=== PATIENT | female | born 1925 | race Caucasian/White ===

== ENCOUNTER 2016-12-28 15:25 | Inpatient (IN) ==
[2016-12-28] MEDS ORDERED: 0.9 % Sodium Chloride 1,000 ML IVC ONE (15:36)
[2016-12-28] MEDS ORDERED: Ondansetron 4 MG/2 ML VIAL IVP ONE (15:36)
[2016-12-28 16:26] LABS: Basophils % 0.2 %; Eosinophils % 0.2 %; Hematocrit 45.6 % (35.3-44.9); Hemoglobin 14.5 g/dL (11.5-15.4); Immature Granulocytes % 0.8 % (0-4); Lymphocytes # 0.5 K/mcL (0.6-4.6); Lymphocytes % 2.9 %; Mean Corpuscular HGB Conc 31.8 g/dL (31.6-35.5); Mean Corpuscular Hemoglobin 31.3 pg (28.0-33.3); Mean Corpuscular Volume 98.5 fL (83.0-100.0); Mean Platelet Volume 12.5 fL (9.4-12.4); Monocytes # 0.7 K/mcL (0.0-1.3); Monocytes % 4.1 %; Neutrophils # 14.7 K/mcL (1.6-8.9); Platelet Count 239 K/mcL (140-400); Red Blood Count 4.63 M/mcL (3.82-4.97); Red Cell Distribution Width 12.6 % (11.5-14.5); Segmented Neutrophils % 91.8 %
[2016-12-28 16:34] LABS: Bilirubin,Urine Negative (Negative); Blood,Urine Negative (Negative); Clarity,Urine Clear (Clear); Color,Urine Yellow (Yellow); Glucose,Urine (UA) Normal (Normal); Ketones,Urine Negative (Negative); Leukocyte Esterase,Urine Trace (Negative); Nitrite,Urine Negative (Negative); Protein,Urine Negative (Neg-Trace); Specific Gravity,Urine 1.015 (1.010-1.025); Urobilinogen,Urine Normal (Normal)
[2016-12-28 16:38] LABS: Bacteria,Urine None Seen per hpf (None-Few); Hyaline Casts,Urine None Seen per lpf (None-Few); RBC,Urine 0-3 per hpf (0-3); Squamous Epithelial Cell,Urine Many per lpf (None-Few); WBC,Urine 0-3 per hpf (0-3)
[2016-12-28 16:40] LABS: Albumin 3.8 g/dL (3.5-5.0); Albumin/Globulin Ratio 0.9 (1.1-2.2); Bilirubin,Total 0.5 mg/dL (0.2-1.2); Calcium 9.7 mg/dL (8.6-10.8); Globulin 4.4 g/dL (2.4-3.5); Potassium 4.4 mEq/L (3.5-4.5); Total Protein 8.2 g/dL (6.0-8.3)
--- NOTE | 2016-12-28 16:46 | Emergency Department Note ---
Disposition Clinical Impression: Hypoxia, Aspiration into airway, Rotavirus enteritis, [id number] kidney injury Disposition: Admitted As Inpatient Condition: Fair Time of Disposition: 18:56 General Adult HPI - General Chief complaint: ED Nausea/Vomiting/Diarrhea Stated complaint: vomiting diarrhea Time Seen by Provider: 12/28/16 15:28 Source: EMS Nursing Notes Reviewed: Yes Vital Signs Reviewed: Yes - History of Present Illness HPI Narrative: Patient is a 89-year-old female was brought in by EMS from [facility] secondary to suspected aspiration event morning. Patient had a O2 sat of 72 EMS arrived, and route patient was suctioned, which allowed elevation of her SPO2 secondary to getting some chunks in yellow mucus out. On arrival patient had incontinence of bowel with copious amounts of watery greenish stool in the rig, and then again once patient got into the room. Pain Scale: 0 - Related Data Home Medications Medication Instructions Recorded Confirmed Docusate Sodium [Move It Along] 100 mg PO DAILY 09/05/16 12/28/16 Ibuprofen [Motrin] 200 mg PO Q12H PRN 09/05/16 12/28/16 Levothyroxine [Synthroid] 100 mcg PO DAILY 09/05/16 12/28/16 Losartan [Cozaar] 25 mg PO DAILY 09/05/16 12/28/16 Memantine HCl 10 mg PO BID 09/05/16 12/28/16 Metoprolol [Lopressor] 50 mg PO BID 09/05/16 12/28/16 Omeprazole [PriLOSEC] 20 mg PO DAILY 09/05/16 12/28/16 Sennosides [Senna] 8.6 mg PO DAILY 09/05/16 12/28/16 Acetaminophen [Tylenol] 500 mg PO Q6HR PRN 09/06/16 12/28/16 Calcium Carbonate [Tums] 1,000 mg PO Q4HR PRN 12/28/16 12/28/16 Citalopram [CeleXA] 20 mg PO DAILY 12/28/16 12/28/16 Divalproex Sodium [Depakote 125 mg PO BID 12/28/16 12/28/16 Sprinkle] Gabapentin [Neurontin] 100 mg PO HS 12/28/16 12/28/16 Lactose-Reduced Food [Ensure Plus] 1 bottle PO DAILY 12/28/16 12/28/16 Magic Cup 1 each PO DAILY 12/28/16 12/28/16 Nutritional Supplement [Ensure] 113 gm PO QPM 12/28/16 12/28/16 Allergies Allergy/AdvReac Type Severity Reaction Status Date / Time codeine Allergy See Verified 12/28/16 16:06 Comments Donepezil [From Aricept] Allergy See Verified 12/28/16 16:06 Comments Limitations: ROS unobtainable due to patients medical condition Past Medical History - Past Medical History Source: old records reviewed Medical history: Reports: cancer, dementia, hypertension, thyroid disease Psychiatric history: Reports: no psych history - Social History Smoking Status: Unknown if ever smoked Smokeless Tobacco Status: No Alcohol use: Reports: none Drug use: Reports: none Physical Exam - General Limitations: other (History of Alzheimer's dementia from report this is patient' s normal baseline. Patient makes attempts at all some directions. Her mouth and she responded to some questioning stating that she was cold) General appearance: lethargic - Head Head exam: atraumatic, normocephalic, normal inspection - Eye Eye exam: Present: normal appearance, PERRL - ENT ENT exam: normal exam, mucous membranes dry - Neck Neck exam: Present: normal inspection. Absent: tenderness - Chest Chest inspection: Present: normal inspection, symmetric chest wall rise. Absent : tenderness - Respiratory Respiratory exam: Present: wheezes, stridor - Cardiovascular Cardiovascular exam: Present: regular rate, normal rhythm - Abdominal Exam Abdominal exam: Present: soft, tenderness Abdominal tenderness: Present: diffuse - Rectal Exam Rectal exam: Present: other (Deferred secondary to explosive diarrhea) - Female External Exam: Present: normal external exam - Extremities Exam Extremities exam: Present: normal inspection, normal capillary refill. Absent: tenderness, pedal edema - Expanded Lower Extremity Exam Neurovascular/Tendon exam: Present: normal capillary refill - Neurological Exam Neurological exam: Present: other (Alert to self only) - Psychiatric Psychiatric exam: Present: normal affect - Skin Skin exam: Present: other (cool and dry) Course - Reevaluation(s) Reevaluation #1: Patient's concerning for sepsis secondary to GI infection: C. difficile, versus viral Time: 15:30 Reevaluation #2: Patient's labs show an elevation of white count of 16.0, patient has chronically elevated BUN and creatinine but does worsen today. There are shows positivity for rotavirus. Imaging shows: CT: IMPRESSION: 1. No acute intra-abdominal process identified. 2. Rectal tube in place with nonspecific fluid noted throughout the colon and to a lesser extent small bowel. No evidence for bowel obstruction. 3. Diverticulosis without evidence for diverticulitis. 4. Severe atherosclerotic disease. Chest X-Ray 12/28/16 15:36 IMPRESSION: Left basilar atelectasis or scarring. No acute cardiopulmonary process is seen. Plan is to admit patient for hypoxic event secondary to aspiration and an 89- year-old female with severe gastroenteritis secondary to rotavirus infection Time: 18:14 Reevaluation #3: Patient looks improved from when she first got here. Patient still has unintelligible speech. IV antibiotics have been initiated for possible aspiration pneumonia. Family accepts treatment and plan for admission. Spoke to hospitalist who has accepted for admission - Consultations Consultation #1: Accepted for admission by Dora FLORES Time: 18:55 Vital Signs Temperature 97.7 F 12/28/16 16:01 Pulse Rate 77 12/28/16 16:01 Respiratory Rate 18 12/28/16 16:01 Blood Pressure 144/83 12/28/16 16:01 O2 Sat by Pulse Oximetry 88 12/28/16 16:01 Temperature 98.4 F 12/28/16 21:26 Pulse Rate 87 12/28/16 21:26 Respiratory Rate 17 12/28/16 21:26 Blood Pressure 111/61 12/28/16 21:26 O2 Sat by Pulse Oximetry 94 12/28/16 21:26 Oxygen Delivery Oxygen Delivery Room Air Medical Decision Making - Medical Records Medical records reviewed: Yes I reviewed the patient's medical records. - Lab Data Lab results reviewed: Yes I reviewed the patient's lab results. Lab results narrative: Short CBC 12/28/16 Range/Units 16:18 WBC 16.0 H (4.3-11.1) K/mcL Hgb 14.5 (11.5-15.4) g/dL Hct 45.6 H (35.3-44.9) % Plt Count 239 (140-400) K/mcL Neutrophils # 14.7 H (1.6-8.9) K/mcL BMP 12/28/16 Range/Units 16:18 Sodium 140 (136-145) mEq/L Potassium 4.4 (3.5-4.5) mEq/L Chloride 108 (98-109) mEq/L Carbon Dioxide 18 L (19-29) mEq/L BUN 33 H (7-20) mg/dL Creatinine 1.34 H (0.57-1.11) mg/dL Glucose 167 H (70-99) mg/dL Calcium 9.7 (8.6-10.8) mg/dL Liver Function 12/28/16 Range/Units 16:18 Total Bilirubin 0.5 (0.2-1.2) mg/dL AST 27 (5-34) Units/L ALT 34 (0-55) Units/L Alkaline Phosphatase 97 (38-126) Units/L Albumin 3.8 (3.5-5.0) g/dL Urine 12/28/16 Range/Units 15:56 Urine Color Yellow (Yellow) Urine Clarity Clear (Clear) Urine pH 6.0 (5.0-8.0) pH Units Ur Specific Bath 1.015 (1.010-1.025) Urine Protein Negative (Neg-Trace) mg/dL Urine Glucose (UA) Normal (Normal) mg/dL Result diagrams: 12/28/16 16:18 12/28/16 16:18 Lab Results 12/28/16 12/28/16 12/28/16 Range/Units 15:56 15:56 16:18 WBC 16.0 H (4.3-11.1) K/mcL RBC 4.63 (3.82-4.97) M/mcL Hgb 14.5 (11.5-15.4) g/dL Hct 45.6 H (35.3-44.9) % MCV 98.5 (83.0-100.0) fL MCH 31.3 (28.0-33.3) pg MCHC 31.8 (31.6-35.5) g/dL RDW 12.6 (11.5-14.5) % Plt Count 239 (140-400) K/mcL MPV 12.5 H (9.4-12.4) fL Immature Gran % 0.8 (0-4) % Seg Neutrophils % 91.8 % Lymphocytes % 2.9 % Monocytes % 4.1 % Eosinophils % 0.2 % Basophils % 0.2 % Neutrophils # 14.7 H (1.6-8.9) K/mcL Lymphocytes # 0.5 L (0.6-4.6) K/mcL Monocytes # 0.7 (0.0-1.3) K/mcL Eosinophils # 0.0 (0.0-0.6) K/mcL Basophils # 0.0 (0.0-0.2) K/mcL Sodium (136-145) mEq/L Potassium (3.5-4.5) mEq/L Chloride (98-109) mEq/L Carbon Dioxide (19-29) mEq/L BUN (7-20) mg/dL Creatinine (0.57-1.11) mg/dL Est GFR ( Amer) (> 60) Est GFR (Non-Af Amer) (> 60) BUN/Creatinine Ratio (6-26) Glucose (70-99) mg/dL Calculated Osmolality (280-300) Lactic Acid (0.5-2.2) mmol/L Calcium (8.6-10.8) mg/dL Total Bilirubin (0.2-1.2) mg/dL AST (5-34) Units/L ALT (0-55) Units/L Alkaline Phosphatase (38-126) Units/L Serum Total Protein (6.0-8.3) g/dL Albumin (3.5-5.0) g/dL Globulin (2.4-3.5) g/dL Albumin/Globulin Ratio (1.1-2.2) Lipase (8-78) Units/L TSH (0.350-4.840) mcIU/mL Urine Color Yellow (Yellow) Urine Clarity Clear (Clear) Urine pH 6.0 (5.0-8.0) pH Units Ur Specific Bath 1.015 (1.010-1.025) Urine Protein Negative (Neg-Trace) mg/dL Urine Glucose (UA) Normal (Normal) mg/dL Urine Ketones Negative (Negative) mg/dL Urine Blood Negative (Negative) Urine Nitrite Negative (Negative) Urine Bilirubin Negative (Negative) Urine Urobilinogen Normal (Normal) mg/dL Ur Leukocyte Esterase Trace H (Negative) Urine Microscopic RBC 0-3 (0-3) per hpf Urine Microscopic WBC 0-3 (0-3) per hpf Ur Squamous Epith Cells Many H (None-Few) per lpf Urine Bacteria None Seen (None-Few) per hpf Hyaline Casts None Seen (None-Few) per lpf Ur Culture Indicated? YES A (NO) Stl C. cayetanensis PCR Not detected (Not detect) Stool Rotavirus A PCR DETECTED A (Not detect) Stl Adenov F 40/41 PCR Not detected (Not detect) Stool Astrovirus (PCR) Not detected (Not detect) Stool Campylobacter PCR Not detected (Not detect) Stl C. diff Tox A/B PCR Not detected (Not detect) Stool Cryptosporidium PCR Not detected (Not detect) Stl Sh Tox Pr E STEC PCR Not detected (Not detect) Stool E coli O157 PCR Not detected (Not detect) Stl Enterotoxigenic E PCR Not detected (Not detect) Stool EPEC (PCR) Not detected (Not detect) Stool EAEC (PCR) Not detected (Not detect) Stl E. histolytica PCR Not detected (Not detect) Stool Giardia Lamblia PCR Not detected (Not detect) Stool Salmonella PCR Not detected (Not detect) Stool Sapovirus (PCR) Not detected (Not detect) Stl P. shigelloides PCR Not detected (Not detect) Stl Shigella/EIEC PCR Not detected (Not detect) St Y.enterocolitica PCR Not detected (Not detect) Stool Vibrio (PCR) Not detected (Not detect) Stl Vibrio cholerae PCR Not detected (Not detect) Stl Norovirus GI/GII PCR Not detected (Not detect) Stl GI Panel (PCR) Com See below Specimen Rejected 12/28/16 12/28/16 12/28/16 Range/Units 16:18 18:58 19:37 WBC (4.3-11.1) K/mcL RBC (3.82-4.97) M/mcL Hgb (11.5-15.4) g/dL Hct (35.3-44.9) % MCV (83.0-100.0) fL MCH (28.0-33.3) pg MCHC (31.6-35.5) g/dL RDW (11.5-14.5) % Plt Count (140-400) K/mcL MPV (9.4-12.4) fL Immature Gran % (0-4) % Seg Neutrophils % % Lymphocytes % % Monocytes % % Eosinophils % % Basophils % % Neutrophils # (1.6-8.9) K/mcL Lymphocytes # (0.6-4.6) K/mcL Monocytes # (0.0-1.3) K/mcL Eosinophils # (0.0-0.6) K/mcL Basophils # (0.0-0.2) K/mcL Sodium 140 (136-145) mEq/L Potassium 4.4 (3.5-4.5) mEq/L Chloride 108 (98-109) mEq/L Carbon Dioxide 18 L (19-29) mEq/L BUN 33 H (7-20) mg/dL Creatinine 1.34 H (0.57-1.11) mg/dL Est GFR ( Amer) 45 L (> 60) Est GFR (Non-Af Amer) 37 L (> 60) BUN/Creatinine Ratio 25 (6-26) Glucose 167 H (70-99) mg/dL Calculated Osmolality 301 H (280-300) Lactic Acid 1.5 (0.5-2.2) mmol/L Calcium 9.7 (8.6-10.8) mg/dL Total Bilirubin 0.5 (0.2-1.2) mg/dL AST 27 (5-34) Units/L ALT 34 (0-55) Units/L Alkaline Phosphatase 97 (38-126) Units/L Serum Total Protein 8.2 (6.0-8.3) g/dL Albumin 3.8 (3.5-5.0) g/dL Globulin 4.4 H (2.4-3.5) g/dL Albumin/Globulin Ratio 0.9 L (1.1-2.2) Lipase 52 (8-78) Units/L TSH 4.341 (0.350-4.840) mcIU/mL Urine Color (Yellow) Urine Clarity (Clear) Urine pH (5.0-8.0) pH Units Ur Specific Bath (1.010-1.025) Urine Protein (Neg-Trace) mg/dL Urine Glucose (UA) (Normal) mg/dL Urine Ketones (Negative) mg/dL Urine Blood (Negative) Urine Nitrite (Negative) Urine Bilirubin (Negative) Urine Urobilinogen (Normal) mg/dL Ur Leukocyte Esterase (Negative) Urine Microscopic RBC (0-3) per hpf Urine Microscopic WBC (0-3) per hpf Ur Squamous Epith Cells (None-Few) per lpf Urine Bacteria (None-Few) per hpf Hyaline Casts (None-Few) per lpf Ur Culture Indicated? (NO) Stl C. cayetanensis PCR (Not detect) Stool Rotavirus A PCR (Not detect) Stl Adenov F 40/41 PCR (Not detect) Stool Astrovirus (PCR) (Not detect) Stool Campylobacter PCR (Not detect) Stl C. diff Tox A/B PCR (Not detect) Stool Cryptosporidium PCR (Not detect) Stl Sh Tox Pr E STEC PCR (Not detect) Stool E coli O157 PCR (Not detect) Stl Enterotoxigenic E PCR (Not detect) Stool EPEC (PCR) (Not detect) Stool EAEC (PCR) (Not detect) Stl E. histolytica PCR (Not detect) Stool Giardia Lamblia PCR (Not detect) Stool Salmonella PCR (Not detect) Stool Sapovirus (PCR) (Not detect) Stl P. shigelloides PCR (Not detect) Stl Shigella/EIEC PCR (Not detect) St Y.enterocolitica PCR (Not detect) Stool Vibrio (PCR) (Not detect) Stl Vibrio cholerae PCR (Not detect) Stl Norovirus GI/GII PCR (Not detect) Stl GI Panel (PCR) Com Specimen Rejected Hemolyzed - Radiology Data Radiology results reviewed: Yes I reviewed the patient's radiology results. Abdomen/Pelvis CT 12/28/16 15:36 IMPRESSION: 1. No acute intra-abdominal process identified. 2. Rectal tube in place with nonspecific fluid noted throughout the colon and to a lesser extent small bowel. No evidence for bowel obstruction. 3. Diverticulosis without evidence for diverticulitis. 4. Severe atherosclerotic disease. D/ / Theodore Bishop MD / Theodore Bishop MD Interpreting Provider: Theodore Bishop MD Chest X-Ray 12/28/16 15:36 IMPRESSION: Left basilar atelectasis or scarring. No acute cardiopulmonary process is seen. D/ / Román Cruz MD / Román Cruz MD Interpreting Provider: Román Cruz MD
[2016-12-28 17:31] LABS: Adenovirus F 40/41 PCR Not detected (Not detect); Astrovirus PCR Not detected (Not detect); C.difficile Toxin A/B by PCR Not detected (Not detect); Campylobacter by PCR Not detected (Not detect); Cryptosporidium by PCR Not detected (Not detect); Cyclospora cayetanensis PCR Not detected (Not detect); E. coli O157 by PCR Not detected (Not detect); Entamoeba histolytica PCR Not detected (Not detect); Enteroaggregative E.coli(EAEC) Not detected (Not detect); Enteropathogenic E.coli(EPEC) Not detected (Not detect); Enterotoxigenic E.coli (ETEC) Not detected (Not detect); Giardia lamblia PCR Not detected (Not detect); Norovirus GI/GII PCR Not detected (Not detect); Plesiomonas shigelloides PCR Not detected (Not detect); Rotavirus A PCR ***DETECTED*** (Not detect); Salmonella PCR Not detected (Not detect); Sapovirus PCR Not detected (Not detect); Shig/EnteroinvasiveE coli EIEC Not detected (Not detect); Shigalike tox-prod E coli STEC Not detected (Not detect); Vibrio PCR Not detected (Not detect); Vibrio cholerae PCR Not detected (Not detect); Yersinia enterocolitica PCR Not detected (Not detect)
[2016-12-28] MEDS ORDERED: Vancomycin 1,500 MG in D5% in Water 250 ML IVPB STA (18:05)
[2016-12-28] MEDS ORDERED: Piperacillin/Tazobactam 3.375 GM in D5% in Water (Mini-Bag+) 100 ML IVPB ONE (18:05)
--- NOTE | 2016-12-28 18:42 | Emergency Department Note ---
START Narrative - START START: I, Helder Case, examined this patient and my medical decision-making was reviewed with the MEDICAL DEVICE ENGINEER/PA/Advanced Practice Nurse/Resident Physician. I agree with the documented findings, disposition and treatment plan as described except to the extent set forth below. 89-year-old female brought in to the emergency department by EMS for hypoxia and vomiting with concerns of aspiration. Family states the patient has been increasingly weak and fatigued over the past 24 hours. She had multiple episodes of vomiting at the nursing facility and was satting 72% upon EMS arrival. EMS state they placed the patient on nonrebreather which improved her O2 saturation. Upon arrival to the emergency department the patient had multiple episodes of explosive diarrhea. This was described as a greenish brown liquid without hematochezia or melena. Patient is unable to give a history regarding her case and presentation. A rectal tube was placed by the assisted living nursing director after multiple episodes of liquid stool. Stool panel resulted with rotavirus and was negative for C. difficile. Patient has a small area of possible atelectasis versus aspiration on the chest x-ray. Patient started on antibiotics and will be admitted to the hospital for possible aspiration in for further evaluation and observation.
--- NOTE | 2016-12-28 21:29 | Internal Med History&Physical ---
<Shalom Gross - Last Filed: 12/29/16 00:05> Date of Encounter: 12/29/16 Time of Encounter: 21:00 Assessment and Plan (1) Aspiration into airway Current visit: Yes Status: Suspected Patient reportedly had oxygen saturation 72% when initially evaluated by EMS. Patient's oxygen saturation improved with nonrebreather and she has since stabilized on nasal cannula (4 L). Patient is showing no signs of respiratory distress, nor does she appear to have much difficulty breathing. On auscultation patient has rails heard in the right lower lobe. Concern for possible aspiration event given recent nausea and vomiting. We will continue antibiotics with ampicillin/sulbactam (Unasyn) - dose per patient current creatinine clearance of 12 If patient kidney function improves can change dosing schedule to every 12 hours or more We will provide maintenance IV fluids until patient taking better by mouth (100 ml/hr NS) We will obtain sputum cultures We will obtain blood cultures Acetaminophen as needed for patient's fever We will continue supplemental oxygen as needed, wean as tolerated Will obtain D-Dimer CTA if D-Dimer positive and improvement in renal function observed Qualifiers: Encounter type: initial encounter Qualified Code(s): T17.908A - Unspecified foreign body in respiratory tract, part unspecified causing other injury, initial encounter (2) Rotavirus enteritis Current visit: Yes Status: Acute Patient reportedly have nausea, vomiting, diarrhea prior to contacting EMS and presentation to [facility]. Patient found to have rotavirus in her stool and presentation. Patient's stool was nonbloody, non-melanotic, but was reportedly explosive in character. Patient received rectal tube in the emergency department. We will continue supportive management Continue maintenance fluids until patient taking better by mouth Bedside swallow evaluation Continue home dietary supplements Zofran as needed for patient nausea Patient takes docusate and senna at home for constipation, will place on patient MAR as when necessary (3) Xkccx-ab-fbannrn kidney injury Current visit: Yes Status: Acute Patient currently has acute kidney injury on top of her chronic kidney disease. Current acute kidney injury likely due to dehydration decreased by mouth with recent gastroenteritis from rotavirus. We will avoid nephrotoxic agents We will continue to evaluate renal function with daily chemistry We will give maintenance dose normal saline at 100 ml/hour We will obtain swallow eval while patient to take by mouth if she is able (4) HTN (hypertension) Current visit: No Status: Chronic Patient takes several blood pressure medications at home, including: Metoprolol and losartan We will hold patient losartan due to concerns of acute kidney injury We will continue patient home metoprolol Qualifiers: Hypertension type: essential hypertension Qualified Code(s): I10 - Essential (primary) hypertension (5) DVT prophylaxis Current visit: Yes Status: Acute 5000 units heparin subcutaneous 3 times a day (6) Hypothyroid Current visit: Yes Status: Acute Continue home Synthroid Will check patient TSH Qualifiers: Hypothyroidism type: unspecified Qualified Code(s): E03.9 - Hypothyroidism , unspecified (7) Dementia Current visit: Yes Status: Acute Unsure if patient currently at baseline mental status, but history of Alzheimer' s dementia on several home medications. Continue home medications Qualifiers: Dementia type: Alzheimer's disease Alzheimer's disease onset: unspecified onset Dementia behavioral disturbance: without behavioral disturbance Qualified Code(s): G30.9 - Alzheimer's disease, unspecified; F02.80 - Dementia in other diseases classified elsewhere without behavioral disturbance Internal Medicine - H&P: HPI Chief complaint: Increased encephalopathy Admitted From: Long-term Nursing Facility Plans for Post Hospital Care: Transfer Alf Care History of present illness: Ms. Bills is a 89 year old female with prior medical history of breast cancer, Alzheimer's dementia, hypertension, and hypothyroidism who was brought to [facility] from the nursing facility at which she resides after having been found by her family to be increasingly encephalopathic. The patient's family was not present and the patient was unable to contribute to the current history, so history was obtained via chart review. According to the patient's family she had been having increased weakness and fatigue for the last 24 hours. She had been having nausea, vomiting, and diarrhea at the long-term and was found to have an oxygen saturation of 72% when EMS arrived. Her oxygen saturation did improve with a non-rebreather, and has since stabilized with nasal cannula, but she continued to have copious amounts of diarrhea in both the ambulance and in the emergency department. The patient's stool is described as greenish, non-melanotic, non-bloody. She was found to have rotavirus (and no C. Diff) on examination of her stool. CBC showed leukocytosis, and CT showed possible scarring vs atelectasis of her L lower lobe. Given her baseline altered mental status, there is concern that she could possibly have aspirated during one of her vomiting episodes. Past Med Surg Social Fam HX - Past Medical History Medical history: cancer (Breast), dementia, hypertension, thyroid disease ( hypothyroid) Psychiatric history: no psych history - Past Surgical History Surgical History: breast surgery (b/l mastectomy) - Social History Smoking Status: Unknown if ever smoked Smokeless Tobacco Status: No Alcohol use: none Drug use: none Internal Medicine - H&P: Meds Docusate Sodium [Move It Along] 100 mg PO DAILY 09/05/16 [History] Ibuprofen [Motrin] 200 mg PO Q12H PRN 09/05/16 [History] Levothyroxine [Synthroid] 100 mcg PO DAILY 09/05/16 [History] Losartan [Cozaar] 25 mg PO DAILY 09/05/16 [History] Memantine HCl 10 mg PO BID 09/05/16 [History] Metoprolol [Lopressor] 50 mg PO BID 09/05/16 [History] Omeprazole [PriLOSEC] 20 mg PO DAILY 09/05/16 [History] Sennosides [Senna] 8.6 mg PO DAILY 09/05/16 [History] Acetaminophen [Tylenol] 500 mg PO Q6HR PRN 09/06/16 [History] Calcium Carbonate [Tums] 1,000 mg PO Q4HR PRN 12/28/16 [History] Citalopram [CeleXA] 20 mg PO DAILY 12/28/16 [History] Divalproex Sodium [Depakote Sprinkle] 125 mg PO BID 12/28/16 [History] Gabapentin [Neurontin] 100 mg PO HS 12/28/16 [History] Lactose-Reduced Food [Ensure Plus] 1 bottle PO DAILY 12/28/16 [History] Magic Cup 1 each PO DAILY 12/28/16 [History] Nutritional Supplement [Ensure] 113 gm PO QPM 12/28/16 [History] Allergies codeine Allergy (Verified 12/28/16 16:06) See Comments UNKNOWN REACTION- LISTED ON PATIENT'S [facility] LAST APPT Donepezil [From Aricept] Allergy (Verified 12/28/16 16:06) See Comments UNKNOWN REACTION- LISTED ON PATIENT'S [facility] LAST APPT ROS unobtainable: due to mental status - Constitutional Vitals: Temp Pulse Resp BP Pulse Ox 97.7 F 91 18 140/61 92 12/28/16 16:01 12/28/16 19:02 12/28/16 20:21 12/28/16 20:21 12/28/16 19:02 Exam: General: Cooperative, pleasant, no acute distress, alert and oriented 1 (to self, but not time or place), does not answer questions appropriately Head: Normocephalic, atraumatic Eye: Conjunctiva pink, sclera anicteric, EOMI, PERRL Neck: Supple, trachea midline, mucous membranes slightly dry Respiratory: No accessory muscle usage, rales auscultated in right lower lobe of lung Cardiovascular: Regular rate and rhythm, S1 and S2 present, no murmurs/rubs/ gallops/clicks appreciated GI/abdominal: Nondistended, nontender, soft, normal bowel sounds, no peritoneal signs Extremities: No calf tenderness, noncyanotic, no pedal edema appreciated, warm, lower extremity pulses palpable and symmetrical Neurological: Alert and oriented 1 (to self, but not time or place), no facial droop, no focal deficits Skin: Dry, intact, normal color, increased skin turgor Internal Med - H&P Results - Labs CBC & Chem 7: 12/28/16 16:18 12/28/16 16:18 - EKG Data -: EKG Interpreted by Myself EKG shows normal: sinus rhythm Rate: normal - EKG Data Prior EKG available for review: yes When compared to previous EKG: there is no significant change EKG comments: 12/28/16 22:06 Stable appearing LBBB (when compared to prior ecg) - Impressions Impressions Abdomen/Pelvis CT 12/28/16 15:36 IMPRESSION: 1. No acute intra-abdominal process identified. 2. Rectal tube in place with nonspecific fluid noted throughout the colon and to a lesser extent small bowel. No evidence for bowel obstruction. 3. Diverticulosis without evidence for diverticulitis. 4. Severe atherosclerotic disease. D/ / Theodore Bishop MD / Theodore Bishop MD Interpreting Provider: Theodore Bishop MD Chest X-Ray 12/28/16 15:36 IMPRESSION: Left basilar atelectasis or scarring. No acute cardiopulmonary process is seen. D/ / Román Cruz MD / Román Cruz MD Interpreting Provider: Román Cruz MD <Tashi Chandra R - Last Filed: 12/29/16 12:14> Date of Encounter: 12/28/16 Assessment and Plan (1) Acute respiratory failure Current visit: Yes Status: Acute Possibly due to aspiration versus pulmonary embolism. Check d-dimers; possible CTA chest , if the d-dimers elevated and renal function improves. Qualifiers: Respiratory failure complication: hypoxia Qualified Code(s): J96.01 - Acute respiratory failure with hypoxia Internal Medicine - H&P: HPI History of present illness: Ms. Bills is a 89 year old female All Systems PM: A 10-system review of systems was performed and is negative for pertinent findings except as documented above in the HPI. - Constitutional Vitals: Temp Pulse Resp BP Pulse Ox 98.4 F 87 17 111/61 94 12/28/16 21:26 12/28/16 21:26 12/28/16 21:26 12/28/16 21:26 12/28/16 21:26 Internal Med - H&P Results - Labs CBC & Chem 7: 12/29/16 04:06 12/29/16 04:06 Labs: Short CBC 12/29/16 Range/Units 04:06 WBC 14.0 H (4.3-11.1) K/mcL Hgb 13.0 D (11.5-15.4) g/dL Hct 41.7 (35.3-44.9) % Plt Count 212 (140-400) K/mcL Neutrophils # 12.0 H (1.6-8.9) K/mcL BMP 12/29/16 12/29/16 00:55 04:06 Sodium 141 142 Potassium 3.9 3.6 Chloride 110 H 111 H Carbon Dioxide 17 L 18 L BUN 35 H 37 H Creatinine 1.41 H 1.45 H Glucose 161 H 131 H Calcium 8.8 8.7 - Attending Attestation I performed a history and physical examination of the patient and discussed management with the resident. I reviewed the residents notes and agree with the documented findings and plan of care. 89 Y/F, with h/o dementia with gastroenteritis. Hypoxic when the EMS evaluated the pt. Explosive diarrhea in the ER. Positive for rotavirus. O/E: Confused. B/ L basal crackles present. Abdomen non tender. CXR: Left basilar atelectasis. CT abdomen and pelvis reported no acute intra-abdominal process. A/P: Empirically treat for aspiration pneumonia, with unasyn. Hypoxic respiratory failure: Will check d-dimers; possible CTA, if d-dimer is positive (and renal function improves). Enteritis: Supportive care. IV fluid; probiotics.
[2016-12-28] MEDS ORDERED: Ondansetron 4 MG/2 ML VIAL IVP PRN (21:30)
[2016-12-28] MEDS ORDERED: Naloxone 0.4 MG/ML INJ IVP PRN (21:30)
[2016-12-28] MEDS ORDERED: Acetaminophen 325 MG TABLET PO PRN (21:30)
[2016-12-28] MEDS ORDERED: Sennosides 8.6 MG TABLET PO PRN (22:11)
[2016-12-28] MEDS ORDERED: Melatonin 3 MG TABLET PO PRN (22:12)
[2016-12-28] MEDS: *HR* Heparin 5,000 UNIT/ML VIAL SQ SCH (23:16)
[2016-12-28] MEDS: 0.9 % Sodium Chloride 1,000 ML IVC SCH (23:18)
[2016-12-28 23:23] LABS: Thyroid Stimulating Hormone 4.341 mcIU/mL (0.350-4.840)
[2016-12-29 01:45] LABS: Potassium 3.9 mEq/L (3.5-4.5)
[2016-12-29 01:46] LABS: Calcium 8.8 mg/dL (8.6-10.8); Magnesium 2.3 mg/dL (1.6-2.6)
[2016-12-29] MEDS: *HR* Heparin 5,000 UNIT/ML VIAL SQ SCH ×2 (05:41→16:57)
[2016-12-29 05:58] LABS: Basophils % 0.2 %; Hematocrit 41.7 % (35.3-44.9); Immature Granulocytes % 0.6 % (0-4); Lymphocytes # 0.7 K/mcL (0.6-4.6); Lymphocytes % 5.1 %; Mean Corpuscular HGB Conc 31.2 g/dL (31.6-35.5); Mean Corpuscular Hemoglobin 31.6 pg (28.0-33.3); Mean Corpuscular Volume 101.5 fL (83.0-100.0); Mean Platelet Volume 13.7 fL (9.4-12.4); Monocytes # 1.3 K/mcL (0.0-1.3); Monocytes % 8.9 %; Platelet Count 212 K/mcL (140-400); Red Blood Count 4.11 M/mcL (3.82-4.97); Red Cell Distribution Width 12.9 % (11.5-14.5); Segmented Neutrophils % 85.2 %
[2016-12-29 06:04] LABS: Calcium 8.7 mg/dL (8.6-10.8); Potassium 3.6 mEq/L (3.5-4.5)
--- NOTE | 2016-12-29 08:46 | Internal Med Progress Note ---
Date of Encounter: 12/29/16 Time of Encounter: 08:43 - Assessment and plan (1) Acute respiratory failure Current Visit: Yes Status: Acute Assessment and plan: Likely due to aspiration pneumonia from persistent vomiting and drowsiness. Continue IV Unasyn, follow up blood cultures. Supportive care and supplemental oxygen, wean down FiO2 as tolerated. Qualifiers: Respiratory failure complication: hypoxia Qualified Code(s): J96.01 - Acute respiratory failure with hypoxia (2) Rotavirus enteritis Current Visit: Yes Status: Acute Assessment and plan: Stool vital serology positive for rotavirus and patient noted to have explosive diarrhea, currently on fecal management system, along with projectile vomiting. Continue supportive care with when necessary Phenergan, Zofran and IV hydration. Pureed diet as tolerated. Monitor and supplement electrolytes as needed. (3) Ccqgs-uk-jignpyp kidney injury Current Visit: Yes Status: Acute Assessment and plan: Likely prerenal etiology due to GI losses and dehydration. Continue IV hydration and monitor serum creatinine closely. (4) HTN (hypertension) Current Visit: Yes Status: Chronic Assessment and plan: Blood pressure noted to be fairly controlled. Resume home medications. ARB has been held due to acute kidney injury. Qualifiers: Hypertension type: essential hypertension Qualified Code(s): I10 - Essential (primary) hypertension (5) CKD (chronic kidney disease) stage 3, GFR 30-59 ml/min Current Visit: Yes Status: Chronic (6) Hypothyroid Current Visit: Yes Status: Chronic Assessment and plan: Continue home dose of levothyroxine. Qualifiers: Hypothyroidism type: unspecified Qualified Code(s): E03.9 - Hypothyroidism , unspecified (7) Dementia Current Visit: Yes Status: Chronic Assessment and plan: Mental status likely at baseline, cannot answer appropriately. Continue supportive care and fall precautions. Plan is for patient to return back to extended care facility when medically stable. Qualifiers: Dementia type: Alzheimer's disease Alzheimer's disease onset: unspecified onset Dementia behavioral disturbance: without behavioral disturbance Qualified Code(s): G30.9 - Alzheimer's disease, unspecified; F02.80 - Dementia in other diseases classified elsewhere without behavioral disturbance - Subjective Interval history: Lying in bed, confused. Unable to answer appropriately. Cannot get history. Sitter at bedside reports that patient had an episode of projectile vomiting. - Constitutional Vitals: Temp Pulse Resp BP Pulse Ox 98.4 F 87 17 111/61 94 12/28/16 21:26 12/28/16 21:26 12/28/16 21:26 12/28/16 21:26 12/28/16 21:26 General appearance: Present: A&O X 0 - Respiratory Respiratory exam: Present: CTAB (Not cooperative for complete exam but clear anteriorly, mild rhonchi at left midaxillary area). Absent: accessory muscle use, rales, rhonchi, wheezes - Cardiovascular Cardiovascular exam: Present: RRR, +S1, +S2. Absent: diastolic murmur, gallop, rubs, systolic murmur - GI/Abdominal GI/Abdominal exam: Present: normal bowel sounds, soft, no peritoneal signs. Absent: distended, tenderness - Extremities Exam Extremities exam: Present: full ROM, warm, radial pulses palpable and symetrical. Absent: calf tenderness, cyanotic, pedal edema Internal Medicine: Result - Labs CBC & Chem 7: 12/30/16 04:18 12/30/16 04:18 Labs: Short CBC 12/29/16 Range/Units 04:06 WBC 14.0 H (4.3-11.1) K/mcL Hgb 13.0 D (11.5-15.4) g/dL Hct 41.7 (35.3-44.9) % Plt Count 212 (140-400) K/mcL Neutrophils # 12.0 H (1.6-8.9) K/mcL BMP 12/29/16 12/29/16 00:55 04:06 Sodium 141 142 Potassium 3.9 3.6 Chloride 110 H 111 H Carbon Dioxide 17 L 18 L BUN 35 H 37 H Creatinine 1.41 H 1.45 H Glucose 161 H 131 H Calcium 8.8 8.7 - ABG Interpretation ABG results: PT/INR, D-dimer D-Dimer 2259 ng/mLFEU (0-500) H 12/29/16 00:55 Consult Discharge Plan - Plan Referrals: Ivis Giraldo CNP [Primary Care Provider] - (web request sent on 12/29/16-- Patient came from [facility], so patient will follow up with PCP at the center)
[2016-12-29] MEDS ORDERED: MAGIC CUP PO SCH (09:00)
[2016-12-29] MEDS ORDERED: (Lactose-Reduced Food [Ensure Plus] 1 BOTTLE) PO SCH (09:00)
[2016-12-29] MEDS ORDERED: Sennosides 8.6 MG TABLET PO SCH (09:00)
[2016-12-29] MEDS ORDERED: Ampicillin/Sulbactam 3,000 MG in 0.9 % Sodium Chloride Mini Bag 100 ML IVPB SCH (09:00)
[2016-12-29] MEDS: 0.9 % Sodium Chloride 1,000 ML IVC SCH ×2 (09:43→22:23)
[2016-12-29] MEDS: Lactobacillus 1 EACH CAP.SPRINK PO SCH ×2 (09:48→22:25)
[2016-12-29] MEDS: Divalproex Sodium 125 MG CAPSULE PO SCH ×2 (09:49→22:25)
[2016-12-29] MEDS: Ampicillin/Sulbactam 3,000 MG in 0.9 % Sodium Chloride Mini Bag 100 ML IVPB SCH ×2 (12:04→22:22)
[2016-12-29] MEDS ORDERED: *HR* Promethazine 25 MG/ML VIAL IM PRN ×2 (12:50→12:53)
[2016-12-29] MEDS ORDERED: *HR* Promethazine 25 MG/ML VIAL IVP PRN (13:09)
[2016-12-29] MEDS ORDERED: Piperacillin/Tazobactam 3.375 GM in D5% in Water (Mini-Bag+) 100 ML IVPB SCH ×2 (16:00)
[2016-12-29] MEDS: Ondansetron 4 MG/2 ML VIAL IVP PRN (16:56)
[2016-12-29] MEDS ORDERED: ENSURE PO SCH (18:00)
[2016-12-29] MEDS: Gabapentin 100 MG CAPSULE PO SCH (22:25)
[2016-12-30 04:45] LABS: Basophils % 0.1 %; Hematocrit 35.2 % (35.3-44.9); Immature Granulocytes % 0.6 % (0-4); Lymphocytes # 0.7 K/mcL (0.6-4.6); Lymphocytes % 7.6 %; Mean Corpuscular HGB Conc 31.8 g/dL (31.6-35.5); Mean Corpuscular Hemoglobin 31.6 pg (28.0-33.3); Mean Corpuscular Volume 99.4 fL (83.0-100.0); Monocytes # 0.6 K/mcL (0.0-1.3); Monocytes % 6.5 %; Neutrophils # 7.2 K/mcL (1.6-8.9); Platelet Count 159 K/mcL (140-400); Red Blood Count 3.54 M/mcL (3.82-4.97); Red Cell Distribution Width 12.9 % (11.5-14.5); Segmented Neutrophils % 85.2 %
[2016-12-30 04:53] LABS: BUN/Creatinine Ratio 29 (6-26); Blood Urea Nitrogen 30 mg/dL (7-20); Calcium 7.8 mg/dL (8.6-10.8); Carbon Dioxide 17 mEq/L (19-29); Chloride 122 mEq/L (98-109); Glucose 117 mg/dL (70-99); Hemoglobin 11.2 g/dL (11.5-15.4); Osmolality,Calculated 315 (280-300); Sodium 149 mEq/L (136-145); eGFR For African Americans > 60 (> 60); eGFR For Non-African Americans 50 (> 60)
--- NOTE | 2016-12-30 05:33 | Electrocardiograph Report ---
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
[2016-12-30] MEDS: *HR* Heparin 5,000 UNIT/ML VIAL SQ SCH ×2 (06:37→17:43)
[2016-12-30] MEDS: Lactobacillus 1 EACH CAP.SPRINK PO SCH ×2 (08:46→22:03)
[2016-12-30] MEDS: Divalproex Sodium 125 MG CAPSULE PO SCH ×2 (08:47→22:04)
[2016-12-30] MEDS: 0.9 % Sodium Chloride 1,000 ML IVC SCH (08:47)
[2016-12-30] MEDS: Ampicillin/Sulbactam 3,000 MG in 0.9 % Sodium Chloride Mini Bag 100 ML IVPB SCH ×2 (08:50→22:04)
[2016-12-30] MEDS: Ondansetron 4 MG/2 ML VIAL IVP PRN ×2 (08:53→15:36)
--- NOTE | 2016-12-30 12:05 | Venous Imaging Report ---
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 Recommendations: Test completed on 12/29/2016 at 5:29:09 pm. Critical findings reported to Sharonda nurse on to relay message by phone at 5:31:03 pm on 12/29/2016 by Azra Morrison RVT, RDCS. Findings Venous Duplex Results: Right: Venous imaging of the lower extremity reveals full patency and normal vessel compressibility of the right distal iliac, right common femoral, right superficial femoral, right popliteal, right posterior tibial, right peroneal, right saphenofemoral junction, right great saphenous and right lesser saphenous. Doppler signals in the evaluated veins were normal. Left: Venous imaging of the lower extremity reveals full patency and normal vessel compressibility of the left distal iliac, left common femoral, left superficial femoral, left popliteal, left posterior tibial, left peroneal, left saphenofemoral junction, left great saphenous and left lesser saphenous. Doppler signals in the evaluated veins were normal. Lower Extremity Venous Duplex Side Vein Compress Spontaneous Flow Augment Diameter (cm) Depth (cm) Right Distal Iliac Normal Yes Phasic Yes Right Common Femoral Normal Yes Phasic Yes Right Superficial Femoral Normal Yes Phasic Yes Right Popliteal Normal Yes Phasic Yes Right Posterior Tibial Normal Yes Phasic Yes Right Peroneal Normal Yes Phasic Yes Right Saphenofemoral [place] Normal Yes Phasic Yes Right Great Saphenous Normal Yes Phasic Yes Right Lesser Saphenous Normal Yes Phasic Yes Left Distal Iliac Normal Yes Phasic Yes Left Common Femoral Normal Yes Phasic Yes Left Superficial Femoral Normal Yes Phasic Yes Left Popliteal Normal Yes Phasic Yes Left Posterior Tibial Normal Yes Phasic Yes Left Peroneal Normal Yes Phasic Yes Left Saphenofemoral [place]unction Normal Yes Phasic Yes Left Great Saphenous Normal Yes Phasic Yes Left Lesser Saphenous Normal Yes Phasic Yes Updated by Juan Barber MD, FACS on 12/30/2016 11:58:37 AM Juan Barber MD electronically signed on 12/30/2016 11:59:22 AM with status of Final
[2016-12-30] MEDS: Potassium Chloride Elixir 20 MEQ/15 ML UDC PO SCH ×2 (13:14→14:58)
[2016-12-30] MEDS: Gabapentin 100 MG CAPSULE PO SCH (22:04)
[2016-12-31] MEDS: *HR* Heparin 5,000 UNIT/ML VIAL SQ SCH ×2 (06:02→16:48)
[2016-12-31 06:09] LABS: BUN/Creatinine Ratio 28 (6-26); Blood Urea Nitrogen 25 mg/dL (7-20); Carbon Dioxide 18 mEq/L (19-29); Chloride 124 mEq/L (98-109); Glucose 97 mg/dL (70-99); Magnesium 2.2 mg/dL (1.6-2.6); Osmolality,Calculated 318 (280-300); Sodium 152 mEq/L (136-145); eGFR For African Americans > 60 (> 60); eGFR For Non-African Americans > 60 (> 60)
[2016-12-31] MEDS: Lactobacillus 1 EACH CAP.SPRINK PO SCH ×2 (08:09→21:39)
[2016-12-31] MEDS: Divalproex Sodium 125 MG CAPSULE PO SCH ×2 (08:09→21:40)
[2016-12-31] MEDS: Ampicillin/Sulbactam 3,000 MG in 0.9 % Sodium Chloride Mini Bag 100 ML IVPB SCH ×2 (09:39→21:50)
[2016-12-31] MEDS: D5% in Water 1,000 ML IVC SCH (11:40)
[2016-12-31] MEDS: Potassium Chloride Elixir 20 MEQ/15 ML UDC PO SCH ×2 (12:03→14:47)
[2016-12-31] MEDS: Ipratropium/Albuterol Neb 3 ML IH SCH ×3 (15:28→22:31)
[2016-12-31] MEDS: *HR* LORazepam 2 MG/ML VIAL IVP PRN (16:48)
[2016-12-31] MEDS: Gabapentin 100 MG CAPSULE PO SCH (21:40)
[2017-01-01] MEDS: D5% in Water 1,000 ML IVC SCH ×2 (04:12→17:08)
[2017-01-01] MEDS: Ipratropium/Albuterol Neb 3 ML IH SCH ×6 (04:27→23:28)
[2017-01-01] MEDS: *HR* Heparin 5,000 UNIT/ML VIAL SQ SCH ×2 (05:14→17:04)
[2017-01-01 06:01] LABS: BUN/Creatinine Ratio 22 (6-26); Blood Urea Nitrogen 21 mg/dL (7-20); Calcium 8.4 mg/dL (8.6-10.8); Carbon Dioxide 21 mEq/L (19-29); Chloride 120 mEq/L (98-109); Glucose 101 mg/dL (70-99); Osmolality,Calculated 313 (280-300); Sodium 150 mEq/L (136-145); eGFR For African Americans > 60 (> 60); eGFR For Non-African Americans 55 (> 60)
[2017-01-01 06:05] LABS: Potassium 4.4 mEq/L (3.5-4.5)
[2017-01-01] MEDS: Lactobacillus 1 EACH CAP.SPRINK PO SCH ×2 (08:42→22:11)
[2017-01-01] MEDS: Divalproex Sodium 125 MG CAPSULE PO SCH ×2 (08:42→22:12)
[2017-01-01] MEDS: Ampicillin/Sulbactam 3,000 MG in 0.9 % Sodium Chloride Mini Bag 100 ML IVPB SCH ×2 (08:43→22:24)
--- NOTE | 2017-01-01 10:42 | Internal Med Progress Note ---
Date of Encounter: 01/01/17 Time of Encounter: 10:41 - Assessment and plan (1) Hypernatremia Current Visit: Yes Status: Acute Assessment and plan: noted to be slightly worsening; will increase D5W to 120cc/hr; encourage oral hydration; will obtain CT chest to r/o pulmonary edema; (2) Acute respiratory failure Current Visit: Yes Status: Acute Assessment and plan: improving slowly; likely due to possible aspiration; continue supplemental O2 and wean down FiO2 as tolerated; continue bronchodilators and oral steroids, breath sounds improving; Qualifiers: Respiratory failure complication: hypoxia Qualified Code(s): J96.01 - Acute respiratory failure with hypoxia (3) Rotavirus enteritis Current Visit: Yes Status: Acute Assessment and plan: improved emesis, improving diarrhea; patient self-removed rectal tube but continues to have loose BMs in diapers; continue IV hydration, monitor and replete electrolytes and supportive care; (4) Ailcx-fv-dgmphja kidney injury Current Visit: Yes Status: Acute Assessment and plan: serum creatinine improving back to baseline; (5) HTN (hypertension) Current Visit: Yes Status: Chronic Assessment and plan: BP better controlled; continue current medications; Qualifiers: Hypertension type: essential hypertension Qualified Code(s): I10 - Essential (primary) hypertension (6) CKD (chronic kidney disease) stage 3, GFR 30-59 ml/min Current Visit: Yes Status: Chronic (7) Hypothyroid Current Visit: Yes Status: Chronic Qualifiers: Hypothyroidism type: unspecified Qualified Code(s): E03.9 - Hypothyroidism , unspecified (8) Dementia Current Visit: Yes Status: Chronic Assessment and plan: continue supportive care and fall precautions; patient was noted to have sustained a fall this evening due to confusion and was noted to get out of bed and found on the floor; reports left-sided headache; will obtain CT head to r/o fractures and bleed; PRN 1:1 sitter for patient safety; Qualifiers: Dementia type: Alzheimer's disease Alzheimer's disease onset: unspecified onset Dementia behavioral disturbance: without behavioral disturbance Qualified Code(s): G30.9 - Alzheimer's disease, unspecified; F02.80 - Dementia in other diseases classified elsewhere without behavioral disturbance - Subjective Interval history: No change in clinical status. Confused and disoriented, unable to provide history, speaks inappropriately. Refuses oral diet. Improved vomiting but continues to have some loose watery diarrhea. - Constitutional Vitals: Temp Pulse Resp BP Pulse Ox 98.6 F 76 17 140/92 98 01/01/17 07:56 01/01/17 07:56 01/01/17 07:56 01/01/17 07:56 01/01/17 07:56 General appearance: Present: A&O X 0 - Respiratory Respiratory exam: Present: CTAB (Coarse breath sounds bilaterally, bilateral wheezing). Absent: accessory muscle use, rales, rhonchi, wheezes - Cardiovascular Cardiovascular exam: Present: RRR, +S1, +S2. Absent: diastolic murmur, gallop, rubs, systolic murmur - GI/Abdominal GI/Abdominal exam: Present: normal bowel sounds, soft, no peritoneal signs. Absent: distended, tenderness Internal Medicine: Result - Labs CBC & Chem 7: 01/06/17 07:04 01/06/17 03:54 Labs: BMP 01/01/17 05:29 Sodium 150 H Potassium 4.4 D Chloride 120 H Carbon Dioxide 21 BUN 21 H Creatinine 0.96 Glucose 101 H Calcium 8.4 L - ABG Interpretation ABG results: PT/INR, D-dimer D-Dimer 2259 ng/mLFEU (0-500) H 12/29/16 00:55 Consult Discharge Plan - Plan Additional Instructions: Follow-up with your primary care provider in the next 3-5 days Give medications as prescribed. Referrals: Ivis Giraldo CNP [Primary Care Provider] - (Patient came from [facility], so patient will follow up with PCP at the center) Prescriptions: Amlodipine [Norvasc] 5 mg PO DAILY #10 tablet
--- NOTE | 2017-01-01 18:14 | Internal Med Progress Note ---
Date of Encounter: 12/30/16 Time of Encounter: 12:30 - Assessment and plan (1) Acute respiratory failure Current Visit: Yes Status: Acute Assessment and plan: Likely due to aspiration pneumonia from persistent vomiting and drowsiness. Continue IV Unasyn, follow up blood cultures. Supportive care and supplemental oxygen, wean down FiO2 as tolerated. Qualifiers: Respiratory failure complication: hypoxia Qualified Code(s): J96.01 - Acute respiratory failure with hypoxia (2) Rotavirus enteritis Current Visit: Yes Status: Acute Assessment and plan: Stool vital serology positive for rotavirus. Improving emesis, persistent diarrhea. Continue supportive care with when necessary Phenergan, Zofran and IV hydration. Pureed diet as tolerated, patient is noted to have poor appetite. Monitor and supplement electrolytes as needed. (3) Zmaxt-sw-[id number] kidney injury Current Visit: Yes Status: Acute Assessment and plan: Likely prerenal etiology due to GI losses and dehydration. Continue IV hydration and monitor serum creatinine closely. Serum creatinine noted to be improving. (4) HTN (hypertension) Current Visit: Yes Status: Chronic Assessment and plan: Blood pressure noted to be uncontrolled. We will restart losartan as renal function has improved, Resume other home medications. Qualifiers: Hypertension type: essential hypertension Qualified Code(s): I10 - Essential (primary) hypertension (5) CKD (chronic kidney disease) stage 3, GFR 30-59 ml/min Current Visit: Yes Status: Chronic (6) Hypothyroid Current Visit: Yes Status: Chronic Qualifiers: Hypothyroidism type: unspecified Qualified Code(s): E03.9 - Hypothyroidism , unspecified (7) Dementia Current Visit: Yes Status: Chronic Assessment and plan: Mental status likely at baseline, cannot answer appropriately. Continue supportive care and fall precautions. When necessary IV Ativan for acute agitation/restlessness. Plan is for patient to return back to extended care facility when medically stable. Qualifiers: Dementia type: Alzheimer's disease Alzheimer's disease onset: unspecified onset Dementia behavioral disturbance: without behavioral disturbance Qualified Code(s): G30.9 - Alzheimer's disease, unspecified; F02.80 - Dementia in other diseases classified elsewhere without behavioral disturbance (8) Hypernatremia Current Visit: Yes Status: Acute Assessment and plan: Likely due to dehydration, poor oral intake and GI losses. We will change IV fluids to half normal saline and monitor closely. (9) Hypokalemia Current Visit: Yes Status: Acute Assessment and plan: Likely due to GI losses. Supplement with oral and IV potassium chloride. - Subjective Interval history: Patient is confused and unable to provide history. Talks inappropriately. Improving vomiting but continues to have stool output and rectal tube. - Constitutional Vitals: Temp Pulse Resp BP Pulse Ox 98.6 F 99 16 159/66 97 01/01/17 15:32 01/01/17 15:32 01/01/17 16:19 01/01/17 16:19 01/01/17 16:19 General appearance: Present: A&O X 1 - Respiratory Respiratory exam: Present: CTAB (Coarse breath sounds bilaterally). Absent: accessory muscle use, rales, rhonchi, wheezes - Cardiovascular Cardiovascular exam: Present: RRR, +S1, +S2. Absent: diastolic murmur, gallop, rubs, systolic murmur - GI/Abdominal GI/Abdominal exam: Present: normal bowel sounds, soft, no peritoneal signs. Absent: distended, tenderness - Extremities Exam Extremities exam: Present: full ROM, pedal edema, warm, radial pulses palpable and symetrical. Absent: calf tenderness, cyanotic Internal Medicine: Result - Labs CBC & Chem 7: 12/30/16 04:18 01/01/17 05:29 Labs: BMP 01/01/17 05:29 Sodium 150 H Potassium 4.4 D Chloride 120 H Carbon Dioxide 21 BUN 21 H Creatinine 0.96 Glucose 101 H Calcium 8.4 L - ABG Interpretation ABG results: PT/INR, D-dimer D-Dimer 2259 ng/mLFEU (0-500) H 12/29/16 00:55 - Impressions Impressions Head CT 01/01/17 13:05 IMPRESSION: No acute intracranial abnormality. Patchy hypodensities in the periventricular and subcortical white matter, which are nonspecific, but may represent chronic small vessel ischemic change. D/ / 01/01/2017 14:46:06 Leandro Bravo MD / sandi Interpreting Provider: Leandro Bravo MD Chest CT 01/01/17 13:08 IMPRESSION: 1. Slightly limited exam due to significant respiratory motion. Linear opacities in the lower lobes bilaterally likely atelectasis. There are also questionable tree-in-bud opacities in right middle lobe which may be infectious in etiology. 2. Otherwise no acute cardiopulmonary findings. D/ / 01/01/2017 14:49:51 Iqra Velazquez MD / Sarahy Ruffin Interpreting Provider: Iqra Velazquez MD Consult Discharge Plan - Plan Referrals: Ivis Giraldo, SYSTEMS SECURITY CONSULTANT [Primary Care Provider] - (web request sent on 12/29/16-- Patient came from [facility], so patient will follow up with PCP at the center)
[2017-01-01] MEDS: Gabapentin 100 MG CAPSULE PO SCH (22:12)
[2017-01-01] MEDS: predniSONE 20 MG TABLET PO SCH (22:25)
[2017-01-01] MEDS: *HR* LORazepam 2 MG/ML VIAL IVP PRN (23:58)
[2017-01-02] MEDS: D5% in Water 1,000 ML IVC SCH ×2 (03:09→03:10)
[2017-01-02] MEDS: Ipratropium/Albuterol Neb 3 ML IH SCH ×6 (03:50→23:14)
[2017-01-02] MEDS: *HR* Heparin 5,000 UNIT/ML VIAL SQ SCH ×2 (06:06→18:13)
[2017-01-02 07:49] LABS: BUN/Creatinine Ratio 14 (6-26); Blood Urea Nitrogen 13 mg/dL (7-20); Calcium 8.4 mg/dL (8.6-10.8); Carbon Dioxide 17 mEq/L (19-29); Chloride 109 mEq/L (98-109); Glucose 147 mg/dL (70-99); Magnesium 1.6 mg/dL (1.6-2.6); Osmolality,Calculated 293 (280-300); eGFR For African Americans > 60 (> 60); eGFR For Non-African Americans 56 (> 60)
[2017-01-02 08:04] LABS: Potassium 2.8 mEq/L (3.5-4.5); Sodium 140 mEq/L (136-145)
[2017-01-02] MEDS ORDERED: *HR* LORazepam 2 MG/ML VIAL IVP PRN (09:55)
--- NOTE | 2017-01-02 09:58 | Internal Med Progress Note ---
Date of Encounter: 01/02/17 Time of Encounter: 09:56 - Assessment and plan (1) Hypernatremia Status: Acute Assessment and plan: Serum sodium improving, 140 today; will hold IV hydration and encourage oral hydration; continue to monitor; (2) Hypokalemia Status: Acute Assessment and plan: likely due to GI losses; supplement with oral and IV potassium chloride; (3) Acute respiratory failure Status: Acute Assessment and plan: improving slowly; likely due to possible aspiration; O2 requirements improved to baseline; continue bronchodilators and oral steroids, breath sounds improving ; CT chest shows no e/o- pleural effusion or pulmonary edema; it does show RML and B/L lower lobe infection vs atelectasis; continue IV Unasyn for now, blood cultures have been negative; Qualifiers: Respiratory failure complication: hypoxia Qualified Code(s): J96.01 - Acute respiratory failure with hypoxia (4) Rotavirus enteritis Status: Acute Assessment and plan: improved emesis, improving diarrhea; monitor and replete electrolytes and supportive care; (5) Quzyv-cy-uouzmbc kidney injury Status: Acute (6) HTN (hypertension) Status: Chronic Qualifiers: Hypertension type: essential hypertension Qualified Code(s): I10 - Essential (primary) hypertension (7) CKD (chronic kidney disease) stage 3, GFR 30-59 ml/min Status: Chronic (8) Hypothyroid Status: Chronic Qualifiers: Hypothyroidism type: unspecified Qualified Code(s): E03.9 - Hypothyroidism , unspecified (9) Dementia Status: Chronic Assessment and plan: continue supportive care and fall precautions; sustained a fall due to confusion ; CT head done, shows no e/o- acute bleed or fracture. Will decrease dose of PRN Ativan as patient is noted to have extreme drowsiness due to Ativan overnight; PRN 1:1 sitter for patient safety; Qualifiers: Dementia type: Alzheimer's disease Alzheimer's disease onset: unspecified onset Dementia behavioral disturbance: without behavioral disturbance Qualified Code(s): G30.9 - Alzheimer's disease, unspecified; F02.80 - Dementia in other diseases classified elsewhere without behavioral disturbance - Subjective Interval history: Patient is very drowsy today, likely due to IV Ativan and received overnight, for agitation and restlessness. She does have dementia and cannot provide any history at baseline. Continues to have some watery diarrhea. - Constitutional Vitals: Temp Pulse Resp BP Pulse Ox 97.5 F L 71 16 135/72 100 01/02/17 07:42 01/02/17 07:42 01/02/17 07:42 01/02/17 07:42 01/02/17 07:42 General appearance: Present: A&O X 1 (Drowsy, somnolent) - Respiratory Respiratory exam: Present: rhonchi (Improving bilateral diffuse rhonchi). Absent: accessory muscle use, rales, wheezes - Cardiovascular Cardiovascular exam: Present: RRR, +S1, +S2. Absent: diastolic murmur, gallop, rubs, systolic murmur Internal Medicine: Result - Labs CBC & Chem 7: 01/06/17 07:04 01/06/17 03:54 Labs: BMP 01/02/17 06:28 Sodium 140 D Potassium 2.8 L D Chloride 109 Carbon Dioxide 17 L BUN 13 Creatinine 0.94 Glucose 147 H Calcium 8.4 L - ABG Interpretation ABG results: PT/INR, D-dimer D-Dimer 2259 ng/mLFEU (0-500) H 12/29/16 00:55 - Impressions Impressions Head CT 01/01/17 13:05 IMPRESSION: No acute intracranial abnormality. Patchy hypodensities in the periventricular and subcortical white matter, which are nonspecific, but may represent chronic small vessel ischemic change. D/ / 01/01/2017 14:46:06 Leandro Bravo MD / sandi Interpreting Provider: Leandro Bravo MD Chest CT 01/01/17 13:08 IMPRESSION: 1. Slightly limited exam due to significant respiratory motion. Linear opacities in the lower lobes bilaterally likely atelectasis. There are also questionable tree-in-bud opacities in right middle lobe which may be infectious in etiology. 2. Otherwise no acute cardiopulmonary findings. D/ / 01/01/2017 14:49:51 Iqra Velazquez MD / Sarahy Ruffin Interpreting Provider: Iqra Velazquez MD Consult Discharge Plan - Plan Additional Instructions: Follow-up with your primary care provider in the next 3-5 days Give medications as prescribed. Referrals: Kristal,Ivis G, CLERK CARRIER [Primary Care Provider] - (Patient came from [facility], so patient will follow up with PCP at the center) Prescriptions: Amlodipine [Norvasc] 5 mg PO DAILY #10 tablet
[2017-01-02] MEDS: Ampicillin/Sulbactam 3,000 MG in 0.9 % Sodium Chloride Mini Bag 100 ML IVPB SCH ×2 (10:00→22:13)
[2017-01-02] MEDS: Lactobacillus 1 EACH CAP.SPRINK PO SCH ×2 (11:30→21:33)
[2017-01-02] MEDS: predniSONE 20 MG TABLET PO SCH (11:31)
[2017-01-02] MEDS: Divalproex Sodium 125 MG CAPSULE PO SCH ×2 (11:31→21:34)
[2017-01-02] MEDS: Potassium Chloride Elixir 20 MEQ/15 ML UDC PO SCH ×2 (11:32→14:44)
[2017-01-02] MEDS ORDERED: Potassium Chloride Elixir 20 MEQ/15 ML UDC PO ONE (17:59)
[2017-01-02] MEDS: Gabapentin 100 MG CAPSULE PO SCH (21:34)
[2017-01-03] MEDS: Ipratropium/Albuterol Neb 3 ML IH SCH ×5 (03:09→20:13)
[2017-01-03 05:16] LABS: BUN/Creatinine Ratio 22 (6-26); Blood Urea Nitrogen 20 mg/dL (7-20); Calcium 8.9 mg/dL (8.6-10.8); Carbon Dioxide 18 mEq/L (19-29); Chloride 115 mEq/L (98-109); Glucose 126 mg/dL (70-99); Osmolality,Calculated 308 (280-300); Sodium 147 mEq/L (136-145); eGFR For African Americans > 60 (> 60); eGFR For Non-African Americans 57 (> 60)
[2017-01-03 05:18] LABS: Potassium 4.4 mEq/L (3.5-4.5)
[2017-01-03] MEDS: *HR* Heparin 5,000 UNIT/ML VIAL SQ SCH ×2 (06:09→17:40)
[2017-01-03] MEDS: Ampicillin/Sulbactam 3,000 MG in 0.9 % Sodium Chloride Mini Bag 100 ML IVPB SCH ×2 (10:13→22:29)
[2017-01-03] MEDS: Lactobacillus 1 EACH CAP.SPRINK PO SCH ×2 (10:13→21:31)
[2017-01-03] MEDS: predniSONE 20 MG TABLET PO SCH (10:13)
[2017-01-03] MEDS: Divalproex Sodium 125 MG CAPSULE PO SCH ×2 (10:13→21:31)
[2017-01-03] MEDS ORDERED: D5% in Water 1,000 ML IVC SCH (10:30)
--- NOTE | 2017-01-03 10:30 | Internal Med Progress Note ---
Date of Encounter: 01/03/17 Time of Encounter: 10:28 - Assessment and plan (1) Hypernatremia Status: Acute Assessment and plan: serum sodium again noted to be increasing/worsening; will restart D5W and continue to monitor; encourage oral hydration; (2) Hypokalemia Status: Resolved Assessment and plan: improved with supplementation; (3) Acute respiratory failure Status: Acute Assessment and plan: improving O2 requirements; likely due to aspiration Pneumonia; Qualifiers: Respiratory failure complication: hypoxia Qualified Code(s): J96.01 - Acute respiratory failure with hypoxia (4) Rotavirus enteritis Status: Resolved Assessment and plan: improved emesis and resolving diarrhea; IV hydration and supportive care; PRN Zofran, Phenergan and Loperamide; (5) Iehwy-ji-jvlpbkx kidney injury Status: Resolved (6) HTN (hypertension) Status: Chronic Qualifiers: Hypertension type: essential hypertension Qualified Code(s): I10 - Essential (primary) hypertension (7) CKD (chronic kidney disease) stage 3, GFR 30-59 ml/min Status: Chronic (8) Hypothyroid Status: Chronic Qualifiers: Hypothyroidism type: unspecified Qualified Code(s): E03.9 - Hypothyroidism , unspecified (9) Dementia Status: Chronic Assessment and plan: supportive care and fall precautions; plan to return to ECF when medically stable; Qualifiers: Dementia type: Alzheimer's disease Alzheimer's disease onset: unspecified onset Dementia behavioral disturbance: without behavioral disturbance Qualified Code(s): G30.9 - Alzheimer's disease, unspecified; F02.80 - Dementia in other diseases classified elsewhere without behavioral disturbance - Subjective Interval history: Patient is confused and unable to provide any history; continues to have some diarrhea but much improved overall; no emesis, may be having inadequate oral intake as she refuses some of her meals, due to underlying dementia; not requiring O2; - Constitutional Vitals: Temp Pulse Resp BP Pulse Ox 98.3 F 95 18 179/82 98 01/03/17 08:26 01/03/17 08:26 01/03/17 08:26 01/03/17 08:26 01/03/17 08:26 General appearance: Present: A&O X 1 (pleasantly confused, singing and smiling) - Respiratory Respiratory exam: Present: CTAB, wheezes (occasional end-expiratory wheezing, much improved since admission). Absent: accessory muscle use, rales, rhonchi - Cardiovascular Cardiovascular exam: Present: RRR, +S1, +S2. Absent: diastolic murmur, gallop, rubs, systolic murmur - GI/Abdominal GI/Abdominal exam: Present: normal bowel sounds, soft, no peritoneal signs. Absent: distended, tenderness - Neurological Exam Neurological exam: Absent: pronater drift, facial droop, speech deficit Internal Medicine: Result - Labs CBC & Chem 7: 01/06/17 07:04 01/06/17 03:54 Labs: BMP 01/03/17 04:34 Sodium 147 H Potassium 4.4 D Chloride 115 H Carbon Dioxide 18 L BUN 20 Creatinine 0.92 Glucose 126 H Calcium 8.9 - ABG Interpretation ABG results: PT/INR, D-dimer D-Dimer 2259 ng/mLFEU (0-500) H 12/29/16 00:55 - Impressions Impressions Head CT 01/01/17 13:05 IMPRESSION: No acute intracranial abnormality. Patchy hypodensities in the periventricular and subcortical white matter, which are nonspecific, but may represent chronic small vessel ischemic change. D/ / 01/01/2017 14:46:06 Leandro Bravo MD / sandi Interpreting Provider: Leandro Bravo MD Head CT 01/02/17 18:20 IMPRESSION: No acute intracranial abnormality. Chronic white matter microangiopathic ischemic changes and age-related cerebral atrophy. Stable appearance. D/ / Domo Escamilla MD / Domo Escamilla MD Interpreting Provider: Domo Escamilla MD Consult Discharge Plan - Plan Additional Instructions: Follow-up with your primary care provider in the next 3-5 days Give medications as prescribed. Referrals: Ivis Giraldo, DIRECTOR CHILD [Primary Care Provider] - (Patient came from [facility], so patient will follow up with PCP at the center) Prescriptions: Amlodipine [Norvasc] 5 mg PO DAILY #10 tablet
--- NOTE | 2017-01-03 16:49 | Internal Med Progress Note ---
Date of Encounter: 12/31/16 Time of Encounter: 12:00 - Assessment and plan (1) Hypokalemia Current Visit: Yes Status: Acute Assessment and plan: Likely due to GI losses. Supplement with oral and IV potassium chloride. (2) Hypernatremia Current Visit: Yes Status: Acute Assessment and plan: Likely due to dehydration, poor oral intake and GI losses. Noted to be worsening. We will start D5W, free water deficit noted to be around 2.5 L. Continue to monitor serum sodium closely. (3) Acute respiratory failure Current Visit: Yes Status: Acute Assessment and plan: Likely due to aspiration pneumonia from persistent vomiting and drowsiness. Continue IV Unasyn, follow up blood cultures. Supportive care and supplemental oxygen, wean down FiO2 as tolerated. Patient is noted to have rhonchi, we will start scheduled bronchodilators and oral steroids. Will obtain chest x-ray to rule out possibility of volume overload. Qualifiers: Respiratory failure complication: hypoxia Qualified Code(s): J96.01 - Acute respiratory failure with hypoxia (4) Rotavirus enteritis Current Visit: Yes Status: Acute Assessment and plan: Stool vital serology positive for rotavirus. Improving emesis, improving but persistent diarrhea. Continue supportive care with when necessary Phenergan, Zofran and IV hydration. Pureed diet as tolerated, patient is noted to have poor appetite. Monitor and supplement electrolytes as needed. (5) Febuv-rk-[id number] kidney injury Current Visit: Yes Status: Acute Assessment and plan: Likely prerenal etiology due to GI losses and dehydration. Continue IV hydration and monitor serum creatinine closely. Serum creatinine noted to be improving. (6) HTN (hypertension) Current Visit: Yes Status: Chronic Assessment and plan: Blood pressure continues to remain high, continue home medications, will increase dose of losartan and monitor closely. Qualifiers: Hypertension type: essential hypertension Qualified Code(s): I10 - Essential (primary) hypertension (7) CKD (chronic kidney disease) stage 3, GFR 30-59 ml/min Current Visit: Yes Status: Chronic (8) Hypothyroid Current Visit: Yes Status: Chronic Qualifiers: Hypothyroidism type: unspecified Qualified Code(s): E03.9 - Hypothyroidism , unspecified (9) Dementia Current Visit: Yes Status: Chronic Qualifiers: Dementia type: Alzheimer's disease Alzheimer's disease onset: unspecified onset Dementia behavioral disturbance: without behavioral disturbance Qualified Code(s): G30.9 - Alzheimer's disease, unspecified; F02.80 - Dementia in other diseases classified elsewhere without behavioral disturbance - Subjective Interval history: Patient is confused, unable to provide any history. Improving vomiting and continues to have some diarrhea in the rectal tube; - Constitutional Vitals: Temp Pulse Resp BP Pulse Ox 98.5 F 84 16 147/65 94 01/03/17 15:49 01/03/17 15:49 01/03/17 15:49 01/03/17 15:49 01/03/17 15:49 General appearance: Present: A&O X 1 - Respiratory Respiratory exam: Present: CTAB (Coarse breath sounds bilaterally with scattered rhonchi). Absent: accessory muscle use, rales, rhonchi, wheezes - Cardiovascular Cardiovascular exam: Present: RRR, +S1, +S2. Absent: diastolic murmur, gallop, rubs, systolic murmur - GI/Abdominal GI/Abdominal exam: Present: normal bowel sounds, soft, no peritoneal signs. Absent: distended, tenderness - Extremities Exam Extremities exam: Present: full ROM, warm, radial pulses palpable and symetrical. Absent: calf tenderness, cyanotic, pedal edema Internal Medicine: Result - Labs CBC & Chem 7: 12/30/16 04:18 01/03/17 04:34 Labs: BMP 01/03/17 04:34 Sodium 147 H Potassium 4.4 D Chloride 115 H Carbon Dioxide 18 L BUN 20 Creatinine 0.92 Glucose 126 H Calcium 8.9 - ABG Interpretation ABG results: PT/INR, D-dimer D-Dimer 2259 ng/mLFEU (0-500) H 12/29/16 00:55 - Impressions Impressions Head CT 01/01/17 13:05 IMPRESSION: No acute intracranial abnormality. Patchy hypodensities in the periventricular and subcortical white matter, which are nonspecific, but may represent chronic small vessel ischemic change. D/ / 01/01/2017 14:46:06 Leandro Bravo MD / sandi Interpreting Provider: Leandro Bravo MD Chest CT 01/01/17 13:08 IMPRESSION: 1. Slightly limited exam due to significant respiratory motion. Linear opacities in the lower lobes bilaterally likely atelectasis. There are also questionable tree-in-bud opacities in right middle lobe which may be infectious in etiology. 2. Otherwise no acute cardiopulmonary findings. D/ / 01/01/2017 14:49:51 Iqra Velazquez MD / Saarhy Ruffin Interpreting Provider: Iqra Velazquez MD Head CT 01/02/17 18:20 IMPRESSION: No acute intracranial abnormality. Chronic white matter microangiopathic ischemic changes and age-related cerebral atrophy. Stable appearance. D/ / Domo Escamilla MD / Domo Escamilla MD Interpreting Provider: Domo Escamilla MD Consult Discharge Plan - Plan Referrals: Ivis Giraldo, APPAREL MANUFACTURE INSTRUCTOR [Primary Care Provider] - (web request sent on 12/29/16-- Patient came from [facility], so patient will follow up with PCP at the center)
[2017-01-03] MEDS: Gabapentin 100 MG CAPSULE PO SCH (21:32)
[2017-01-04] MEDS: Ipratropium/Albuterol Neb 3 ML IH SCH ×5 (00:28→21:00)
[2017-01-04 05:10] LABS: BUN/Creatinine Ratio 23 (6-26); Blood Urea Nitrogen 17 mg/dL (7-20); Calcium 8.3 mg/dL (8.6-10.8); Carbon Dioxide 23 mEq/L (19-29); Chloride 108 mEq/L (98-109); Glucose 96 mg/dL (70-99); Osmolality,Calculated 297 (280-300); Sodium 143 mEq/L (136-145); eGFR For African Americans > 60 (> 60); eGFR For Non-African Americans > 60 (> 60)
[2017-01-04 05:12] LABS: Potassium 2.8 mEq/L (3.5-4.5)
[2017-01-04] MEDS: *HR* Heparin 5,000 UNIT/ML VIAL SQ SCH ×2 (05:59→17:40)
[2017-01-04] MEDS: Divalproex Sodium 125 MG CAPSULE PO SCH ×2 (08:30→20:19)
[2017-01-04] MEDS: Lactobacillus 1 EACH CAP.SPRINK PO SCH ×2 (08:30→20:20)
[2017-01-04] MEDS: predniSONE 10 MG TABLET PO SCH (08:31)
[2017-01-04 10:00] LABS: Magnesium 1.7 mg/dL (1.6-2.6)
[2017-01-04] MEDS: Ampicillin/Sulbactam 3,000 MG in 0.9 % Sodium Chloride Mini Bag 100 ML IVPB SCH ×2 (10:00→23:20)
--- NOTE | 2017-01-04 11:14 | Internal Med Progress Note ---
<Chidi Arellano - Last Filed: 01/04/17 11:23> Date of Encounter: 01/04/17 Time of Encounter: 09:40 - Assessment and plan (1) Acute respiratory failure Current Visit: Yes Status: Acute Assessment and plan: Resolved. Likely due to aspiration pneumonia from persistent vomiting and drowsiness. Plan: -Continue treatment plan as above. Qualifiers: Respiratory failure complication: hypoxia Qualified Code(s): J96.01 - Acute respiratory failure with hypoxia (2) Aspiration into airway Current Visit: Yes Status: Suspected Assessment and plan: Clinically improving. Clinical exam without significant finding. On room oxygen with O2 sats appropriate. Plan: - Completing day 7 of Unasyn - On day 4 of 5 of steroids - Continue breathing treatment Qualifiers: Encounter type: initial encounter Qualified Code(s): T17.908A - Unspecified foreign body in respiratory tract, part unspecified causing other injury, initial encounter (3) Rotavirus enteritis Current Visit: Yes Status: Acute Assessment and plan: Stool vital serology positive for rotavirus. Improving emesis, improving but persistent diarrhea. Vomiting and diarrhea likely source of electrolyte deficiency. - Plan Continue supportive care - Continue PRN Phenergan, Zofran and IV hydration. - Monitor and supplement electrolytes as needed. (4) Dementia Current Visit: Yes Status: Chronic Assessment and plan: Mental status likely at baseline, cannot answer appropriately. Continue supportive care and fall precautions. When necessary IV Ativan for acute agitation/restlessness. Plan: patient to return back to extended care facility when medically stable. Qualifiers: Dementia type: Alzheimer's disease Alzheimer's disease onset: unspecified onset Dementia behavioral disturbance: without behavioral disturbance Qualified Code(s): G30.9 - Alzheimer's disease, unspecified; F02.80 - Dementia in other diseases classified elsewhere without behavioral disturbance (5) Hypothyroid Current Visit: Yes Status: Chronic Assessment and plan: Continue home dose of levothyroxine. Qualifiers: Hypothyroidism type: unspecified Qualified Code(s): E03.9 - Hypothyroidism , unspecified (6) Hypernatremia Current Visit: Yes Status: Acute Assessment and plan: Resolved. Secondary to dehydration from volume loss. (7) Hypokalemia Current Visit: Yes Status: Acute Assessment and plan: Potassium 2.8, likely secondary to GI loss. Plan: - 40meq potassium twice a day 1 day. - Recheck potassium with him labs. (8) DVT prophylaxis Current Visit: Yes Status: Acute Assessment and plan: Continue heparin 5000 units subcutaneous every 12 hours. (9) Hypomagnesemia Current Visit: Yes Status: Acute Assessment and plan: Low this morning. Will replace as needed. - Subjective Interval history: Ms. Bills 89F seen and evaluated patient that since morning. She appears to be altered and does not respond to verbal commands. Does not appear to be in any acute distress. Resting comfortably. - Constitutional Vitals: Temp Pulse Resp BP Pulse Ox 97.6 F 82 15 181/78 98 01/04/17 07:22 01/04/17 07:22 01/04/17 07:26 01/04/17 07:22 01/04/17 07:26 General appearance: Present: A&O X 1 - Head Head exam: Present: atraumatic, normocephalic - Eye Eye exam: Present: PERRL, conjuntiva pink, sclera anicteric Pupils: Present: PERRL - ENT ENT exam: Present: mucous membranes moist - Neck Neck exam general surgery: Present: supple, trachea midline. Absent: lymphadenopathy - Respiratory Respiratory exam: Present: CTAB. Absent: accessory muscle use, rales, rhonchi, wheezes - Cardiovascular Cardiovascular exam: Present: RRR, +S1, +S2. Absent: diastolic murmur, gallop, rubs, systolic murmur - GI/Abdominal GI/Abdominal exam: Present: normal bowel sounds, soft, no peritoneal signs. Absent: distended, tenderness - Extremities Exam Extremities exam: Present: warm, radial pulses palpable and symetrical. Absent : calf tenderness, cyanotic, pedal edema Internal Medicine: Result - Labs CBC & Chem 7: 12/30/16 04:18 01/04/17 04:21 Labs: BMP 01/04/17 04:21 Sodium 143 Potassium 2.8 L D Chloride 108 Carbon Dioxide 23 BUN 17 Creatinine 0.75 Glucose 96 Calcium 8.3 L - ABG Interpretation ABG results: PT/INR, D-dimer D-Dimer 2259 ng/mLFEU (0-500) H 12/29/16 00:55 - Impressions Impressions Chest CT 01/01/17 13:08 IMPRESSION: 1. Slightly limited exam due to significant respiratory motion. Linear opacities in the lower lobes bilaterally likely atelectasis. There are also questionable tree-in-bud opacities in right middle lobe which may be infectious in etiology. 2. Otherwise no acute cardiopulmonary findings. D/ / 01/01/2017 14:49:51 Iqra Velazquez MD / Sarahy Ruffin Interpreting Provider: Iqra Velazquez MD Consult Discharge Plan - Plan Referrals: Ivis Giraldo, ASSISTANT WOMENS V[employer]LEYBALL COACH [Primary Care Provider] - (web request sent on 12/29/16-- Patient came from [facility], so patient will follow up with PCP at the center) <Brian Hurtado - Last Filed: 01/04/17 16:10> Date of Encounter: 01/04/17 - Constitutional Vitals: Temp Pulse Resp BP Pulse Ox 97.6 F 82 15 181/78 98 01/04/17 07:22 01/04/17 07:22 01/04/17 15:39 01/04/17 07:22 01/04/17 15:39 Internal Medicine: Result - Labs CBC & Chem 7: 12/30/16 04:18 01/04/17 04:21 Labs: BMP 01/04/17 04:21 Sodium 143 Potassium 2.8 L D Chloride 108 Carbon Dioxide 23 BUN 17 Creatinine 0.75 Glucose 96 Calcium 8.3 L - ABG Interpretation ABG results: PT/INR, D-dimer D-Dimer 2259 ng/mLFEU (0-500) H 12/29/16 00:55 - Attending Attestation I examined this patient and my medical decision-making was reviewed with the ELECTRICIAN YARD/PA/Advanced Practice Nurse/Resident Physician. I agree with the documented findings, disposition and treatment plan as described except to the extent set forth below. Supplement potassium and magnesium. Monitor electrolytes.
[2017-01-04] MEDS: Magnesium Oxide 400 MG TABLET PO SCH (13:41)
[2017-01-04] MEDS: Potassium Chloride Elixir 20 MEQ/15 ML UDC PO SCH ×2 (13:41→20:13)
[2017-01-04] MEDS: Gabapentin 100 MG CAPSULE PO SCH (20:20)
[2017-01-05] MEDS: Ipratropium/Albuterol Neb 3 ML IH SCH ×4 (03:30→21:28)
[2017-01-05 03:45] LABS: Basophils # 0.1 K/mcL (0.0-0.2); Basophils % 0.7 %; Eosinophils # 0.1 K/mcL (0.0-0.6); Eosinophils % 0.6 %; Hematocrit 32.6 % (35.3-44.9); Immature Granulocytes % 6.7 % (0-4); Lymphocytes # 2.3 K/mcL (0.6-4.6); Lymphocytes % 25.6 %; Mean Corpuscular HGB Conc 33.7 g/dL (31.6-35.5); Mean Corpuscular Hemoglobin 31.6 pg (28.0-33.3); Mean Corpuscular Volume 93.7 fL (83.0-100.0); Mean Platelet Volume 12.4 fL (9.4-12.4); Monocytes # 0.7 K/mcL (0.0-1.3); Monocytes % 7.7 %; Neutrophils # 5.2 K/mcL (1.6-8.9); Platelet Count 190 K/mcL (140-400); Red Blood Count 3.48 M/mcL (3.82-4.97); Red Cell Distribution Width 13.1 % (11.5-14.5); Segmented Neutrophils % 58.7 %
[2017-01-05 03:55] LABS: BUN/Creatinine Ratio 18 (6-26); Blood Urea Nitrogen 14 mg/dL (7-20); Calcium 8.5 mg/dL (8.6-10.8); Carbon Dioxide 28 mEq/L (19-29); Chloride 108 mEq/L (98-109); Glucose 85 mg/dL (70-99); Osmolality,Calculated 296 (280-300); Sodium 143 mEq/L (136-145); eGFR For African Americans > 60 (> 60); eGFR For Non-African Americans > 60 (> 60)
[2017-01-05 04:18] LABS: Toxic Granulation Present (Not Present)
[2017-01-05 04:19] LABS: Large Platelets Present (Not Present); Platelet Estimate Normal (Normal); Reactive Lymphocytes Present (Not Present)
[2017-01-05] MEDS: *HR* Heparin 5,000 UNIT/ML VIAL SQ SCH ×2 (06:18→16:35)
[2017-01-05] MEDS: predniSONE 10 MG TABLET PO SCH (08:40)
[2017-01-05] MEDS: Divalproex Sodium 125 MG CAPSULE PO SCH ×2 (08:40→20:47)
[2017-01-05] MEDS: Magnesium Oxide 400 MG TABLET PO SCH (08:40)
[2017-01-05] MEDS: Lactobacillus 1 EACH CAP.SPRINK PO SCH ×2 (08:40→20:48)
[2017-01-05] MEDS: Ampicillin/Sulbactam 3,000 MG in 0.9 % Sodium Chloride Mini Bag 100 ML IVPB SCH (10:45)
--- NOTE | 2017-01-05 13:52 | Internal Med Progress Note ---
<Chidi Arellano - Last Filed: 01/05/17 13:50> Date of Encounter: 01/05/17 Time of Encounter: 13:50 - Assessment and plan (1) Acute respiratory failure Current Visit: Yes Status: Acute Assessment and plan: Resolved. Likely due to aspiration pneumonia from persistent vomiting and drowsiness. Plan: -Continue treatment plan as above. Qualifiers: Respiratory failure complication: hypoxia Qualified Code(s): J96.01 - Acute respiratory failure with hypoxia (2) Aspiration into airway Current Visit: Yes Status: Suspected Assessment and plan: Clinically improving. Clinical exam without significant finding. On room oxygen with O2 sats appropriate. Plan: - Completed antibiotic corse - Completed steroids. - Continue breathing treatment Qualifiers: Encounter type: initial encounter Qualified Code(s): T17.908A - Unspecified foreign body in respiratory tract, part unspecified causing other injury, initial encounter (3) Rotavirus enteritis Current Visit: Yes Status: Acute Assessment and plan: Stool vital serology positive for rotavirus. Improving emesis, improving but persistent diarrhea. Vomiting and diarrhea likely source of electrolyte deficiency. - Plan Continue supportive care - Continue PRN Phenergan, Zofran and IV hydration. - Monitor and supplement electrolytes as needed. (4) Dementia Current Visit: Yes Status: Chronic Assessment and plan: Mental status likely at baseline, cannot answer appropriately. Continue supportive care and fall precautions. When necessary IV Ativan for acute agitation/restlessness. Plan: patient to return back to extended care facility when medically stable. Qualifiers: Dementia type: Alzheimer's disease Alzheimer's disease onset: unspecified onset Dementia behavioral disturbance: without behavioral disturbance Qualified Code(s): G30.9 - Alzheimer's disease, unspecified; F02.80 - Dementia in other diseases classified elsewhere without behavioral disturbance (5) Hypothyroid Current Visit: Yes Status: Chronic Assessment and plan: Continue home dose of levothyroxine. Qualifiers: Hypothyroidism type: unspecified Qualified Code(s): E03.9 - Hypothyroidism , unspecified (6) Hypernatremia Current Visit: Yes Status: Acute Assessment and plan: Resolved. Secondary to dehydration from volume loss. (7) Hypokalemia Current Visit: Yes Status: Acute Assessment and plan: Improved today but continues to have volume loss. Plan: - Will continue to replace as needed. - Recheck potassium with am labs. (8) Hypomagnesemia Current Visit: Yes Status: Acute Assessment and plan: Stable after replacement. Patient continues to have volume loss will recheck in am. replace as needed. (9) DVT prophylaxis Current Visit: Yes Status: Acute Assessment and plan: Continue heparin 5000 units subcutaneous every 12 hours. - Subjective Interval history: Ms. Bills 89F seen and evaluated patient that since morning. She appears to be altered and does not respond to verbal commands. Stable today. Continues to have loose stools. - Constitutional Vitals: Temp Pulse Resp BP Pulse Ox 98.1 F 68 16 183/64 97 01/05/17 06:59 01/05/17 06:59 01/05/17 06:59 01/05/17 06:59 01/05/17 06:59 General appearance: Present: A&O X 1 - Head Head exam: Present: atraumatic, normocephalic - Eye Eye exam: Present: PERRL, conjuntiva pink, sclera anicteric Pupils: Present: PERRL - ENT ENT exam: Present: mucous membranes moist - Neck Neck exam general surgery: Present: supple, trachea midline. Absent: lymphadenopathy - Respiratory Respiratory exam: Present: CTAB. Absent: accessory muscle use, rales, rhonchi, wheezes - Cardiovascular Cardiovascular exam: Present: RRR, +S1, +S2. Absent: diastolic murmur, gallop, rubs, systolic murmur - GI/Abdominal GI/Abdominal exam: Present: normal bowel sounds, soft, no peritoneal signs. Absent: distended, tenderness - Extremities Exam Extremities exam: Present: warm, radial pulses palpable and symetrical. Absent : calf tenderness, cyanotic, pedal edema - Neurological Exam Neurological exam: Present: altered, no focal deficits. Absent: facial droop Internal Medicine: Result - Labs CBC & Chem 7: 01/05/17 03:29 01/05/17 03:29 Labs: Short CBC 01/05/17 Range/Units 03:29 WBC 8.9 (4.3-11.1) K/mcL Hgb 11.0 L (11.5-15.4) g/dL Hct 32.6 L (35.3-44.9) % Plt Count 190 (140-400) K/mcL Neutrophils # 5.2 (1.6-8.9) K/mcL BMP 01/05/17 03:29 Sodium 143 Potassium 4.0 D Chloride 108 Carbon Dioxide 28 BUN 14 Creatinine 0.76 Glucose 85 Calcium 8.5 L - ABG Interpretation ABG results: PT/INR, D-dimer D-Dimer 2259 ng/mLFEU (0-500) H 12/29/16 00:55 Consult Discharge Plan - Plan Referrals: Ivis Giraldo, SHELLS INSPECTOR [Primary Care Provider] - (Patient came from [facility], so patient will follow up with PCP at the center) <Brian Hurtado - Last Filed: 01/05/17 15:31> Date of Encounter: 01/05/17 - Constitutional Vitals: Temp Pulse Resp BP Pulse Ox 98.1 F 68 16 183/64 97 01/05/17 06:59 01/05/17 06:59 01/05/17 06:59 01/05/17 06:59 01/05/17 06:59 Internal Medicine: Result - Labs CBC & Chem 7: 01/05/17 03:29 01/05/17 03:29 Labs: Short CBC 01/05/17 Range/Units 03:29 WBC 8.9 (4.3-11.1) K/mcL Hgb 11.0 L (11.5-15.4) g/dL Hct 32.6 L (35.3-44.9) % Plt Count 190 (140-400) K/mcL Neutrophils # 5.2 (1.6-8.9) K/mcL [facility] 01/05/17 03:29 Sodium 143 Potassium 4.0 D Chloride 108 Carbon Dioxide 28 BUN 14 Creatinine 0.76 Glucose 85 Calcium 8.5 L - ABG Interpretation ABG results: PT/INR, D-dimer D-Dimer 2259 ng/mLFEU (0-500) H 12/29/16 00:55 - Attending Attestation I examined this patient and my medical decision-making was reviewed with the PRE WAVE ASSEMBLER/PA/Advanced Practice Nurse/Resident Physician. I agree with the documented findings, disposition and treatment plan as described except to the extent set forth below. Poor oral intake today, electrolytes improved. will continue monitoring, possible d/c tomorrow.
[2017-01-05] MEDS: amLODIPine 5 MG TABLET PO SCH (14:03)
[2017-01-05] MEDS: Gabapentin 100 MG CAPSULE PO SCH (20:48)
[2017-01-06] MEDS: Ipratropium/Albuterol Neb 3 ML IH SCH ×2 (03:33→10:13)
[2017-01-06 06:11] LABS: Alanine Aminotransferase 94 Units/L (0-55); Albumin 2.8 g/dL (3.5-5.0); Albumin/Globulin Ratio 0.8 (1.1-2.2); Alkaline Phosphatase 78 Units/L (38-126); Aspartate Amino Transferase 73 Units/L (5-34); BUN/Creatinine Ratio 22 (6-26); Bilirubin,Total 0.4 mg/dL (0.2-1.2); Blood Urea Nitrogen 18 mg/dL (7-20); Carbon Dioxide 24 mEq/L (19-29); Chloride 103 mEq/L (98-109); Globulin 3.6 g/dL (2.4-3.5); Glucose 66 mg/dL (70-99); Magnesium 2.2 mg/dL (1.6-2.6); Osmolality,Calculated 288 (280-300); Potassium 3.9 mEq/L (3.5-4.5); Sodium 139 mEq/L (136-145); Total Protein 6.4 g/dL (6.0-8.3); eGFR For African Americans > 60 (> 60); eGFR For Non-African Americans > 60 (> 60)
[2017-01-06] MEDS: *HR* Heparin 5,000 UNIT/ML VIAL SQ SCH (06:12)
[2017-01-06 06:52] VITALS: BP 160/72
[2017-01-06 07:46] LABS: Hematocrit 37.7 % (35.3-44.9); Hemoglobin 12.2 g/dL (11.5-15.4); Immature Platelets 12.1 % (1.1-6.1); Mean Corpuscular HGB Conc 32.4 g/dL (31.6-35.5); Mean Corpuscular Hemoglobin 30.9 pg (28.0-33.3); Mean Corpuscular Volume 95.4 fL (83.0-100.0); Mean Platelet Volume 11.8 fL (9.4-12.4); Neutrophils # 4.9 K/mcL (1.6-8.9); Nucleated Red Blood Cells 0.3 /100 WBC (0); Platelet Count 233 K/mcL (140-400); Red Blood Count 3.95 M/mcL (3.82-4.97); Red Cell Distribution Width 12.8 % (11.5-14.5)
[2017-01-06] MEDS: Lactobacillus 1 EACH CAP.SPRINK PO SCH (08:31)
[2017-01-06] MEDS: amLODIPine 5 MG TABLET PO SCH (08:31)
[2017-01-06] MEDS: Magnesium Oxide 400 MG TABLET PO SCH (08:32)
[2017-01-06] MEDS: Divalproex Sodium 125 MG CAPSULE PO SCH (08:32)
[2017-01-06 08:39] LABS: Eosinophils # 0.4 K/mcL (0.0-0.6); Monocytes # 0.5 K/mcL (0.0-1.3); Platelet Estimate Normal (Normal)
--- NOTE | 2017-01-06 09:13 | Discharge Summary ---
<Chidi Arellano Huy - Last Filed: 01/06/17 14:26> Date of Encounter: 01/06/17 Time of Encounter: 09:07 - Discharge Diagnosis (1) Acute respiratory failure Priority: Primary Status: Acute Qualifiers: Respiratory failure complication: hypoxia Qualified Code(s): J96.01 - Acute respiratory failure with hypoxia (2) Aspiration into airway Priority: Primary Status: Suspected Qualifiers: Encounter type: initial encounter Qualified Code(s): T17.908A - Unspecified foreign body in respiratory tract, part unspecified causing other injury, initial encounter (3) Rotavirus enteritis Priority: Primary Status: Acute (4) Dementia Priority: Secondary Status: Chronic Qualifiers: Dementia type: Alzheimer's disease Alzheimer's disease onset: unspecified onset Dementia behavioral disturbance: without behavioral disturbance Qualified Code(s): G30.9 - Alzheimer's disease, unspecified; F02.80 - Dementia in other diseases classified elsewhere without behavioral disturbance (5) Hypothyroid Priority: Secondary Status: Chronic Qualifiers: Hypothyroidism type: unspecified Qualified Code(s): E03.9 - Hypothyroidism , unspecified (6) Hypernatremia Priority: Primary Status: Acute (7) Hypokalemia Priority: Primary Status: Acute - Discharge Medications Prescriptions: Amlodipine [Norvasc] 5 mg PO DAILY #10 tablet Home Medications: Docusate Sodium [Move It Along] 100 mg PO DAILY 09/05/16 [History] Ibuprofen [Motrin] 200 mg PO Q12H PRN 09/05/16 [History] Levothyroxine [Synthroid] 100 mcg PO DAILY 09/05/16 [History] Losartan [Cozaar] 25 mg PO DAILY 09/05/16 [History] Memantine HCl 10 mg PO BID 09/05/16 [History] Metoprolol [Lopressor] 50 mg PO BID 09/05/16 [History] Omeprazole [PriLOSEC] 20 mg PO DAILY 09/05/16 [History] Sennosides [Senna] 8.6 mg PO DAILY 09/05/16 [History] Acetaminophen [Tylenol] 500 mg PO Q6HR PRN 09/06/16 [History] Calcium Carbonate [Tums] 1,000 mg PO Q4HR PRN 12/28/16 [History] Citalopram [CeleXA] 20 mg PO DAILY 12/28/16 [History] Divalproex Sodium [Depakote Sprinkle] 125 mg PO BID 12/28/16 [History] Gabapentin [Neurontin] 100 mg PO HS 12/28/16 [History] Lactose-Reduced Food [Ensure Plus] 1 bottle PO DAILY 12/28/16 [History] Magic Cup 1 each PO DAILY 12/28/16 [History] Nutritional Supplement [Ensure] 113 gm PO QPM 12/28/16 [History] Amlodipine [Norvasc] 5 mg PO DAILY #10 tablet 01/06/17 [Rx] Allergies/Adverse Reactions: Allergies codeine Allergy (Verified 12/28/16 16:06) See Comments UNKNOWN REACTION- LISTED ON PATIENT'S ECW LAST APPT Donepezil [From Aricept] Allergy (Verified 12/28/16 16:06) See Comments UNKNOWN REACTION- LISTED ON PATIENT'S ECW LAST APPT Date of admission: 12/28/16 23:28 Primary care physician: Ivis Giraldo CNP Consults: 12/28/16 23:32 Consult to Procurement Intern [CONS] Routine Reason for SW Consult: pt from [facility] 12/29/16 10:21 Consult to Nutrition [CONS] Routine Comment: *From [facility] and receives Ensure/ Magic Cup Consulting Provider: NUTRITION Reason for Dietary Consult: PO Supplementation 12/30/16 15:19 Consult to Occupational Therapy [CONS] Routine Comment: Evaluate, develop and implement POC Consult to Physical Therapy [CONS] Routine Comment: Evaluate, develop and implement POC Discharging clinician: Chidi Arellano Anticipated date of discharge: 01/06/17 - Patient Status Disposition: Transfer SNF Condition: Fair Functional capacity at discharge: independent ambulation Overall status at discharge: patient is progressing back to baseline - Discharge Instructions Follow Up With: Ivis Giraldo CNP [Primary Care Provider] - (Patient came from [facility], so patient will follow up with PCP at the center) Additional Instructions: Follow-up with your primary care provider in the next 3-5 days Give medications as prescribed. - Diet and Activity Activity: as per physical therapy Diet: advance to your usual diet Interval History: Ms. Bills is a 89 year old female with prior medical history of breast cancer, Alzheimer's dementia, hypertension, and hypothyroidism who was brought to [facility] from the nursing facility at which she resides after having been found by her family to be increasingly encephalopathic. She was admitted to [facility] with nausea, vomiting, diarrhea, aspiration pneumonia and found to have rotavirus colitis. Stool cultures were collected, no C. difficile was found. She was started on Unasyn for aspiration and symptom control for her rotavirus colitis. She is also found to have acute kidney injury on top of her chronic kidney disease. During her inpatient stay she received IV fluids, Zofran and treated symptomatically. Her clinical symptoms improved daily. Her electrolyte abnormalities secondary to nausea vomiting diarrhea were corrected. Patient's delirium resolved back to baseline. She completed 7 days of Unasyn antibiotic coverage. She was seen and evaluated on 01/06/2017 and deemed stable for discharge back to [facility]. Imaging studies collected during inpatient stay included venous Doppler which was negative for DVT, head CT was without acute findings. Hospital course: Ms. Bills is a 89 year old female - Time Spent with Patient Total time spent providing and/or coordinating discharge services: - Constitutional Vitals: Temp Pulse Resp BP Pulse Ox 98.7 F 61 16 160/72 95 01/06/17 06:46 01/06/17 06:46 01/06/17 06:46 01/06/17 06:46 01/06/17 06:46 General appearance: Present: A&O X 1 - Head Head exam: Present: atraumatic, normocephalic - Eye Eye exam: Present: PERRL, conjuntiva pink, sclera anicteric Pupils: Present: PERRL - ENT ENT exam: Present: mucous membranes moist - Neck Neck exam general surgery: Present: supple, trachea midline. Absent: lymphadenopathy - Respiratory Respiratory exam: Present: CTAB. Absent: accessory muscle use, rales, rhonchi, wheezes - Cardiovascular Cardiovascular exam: Present: RRR, +S1, +S2. Absent: diastolic murmur, gallop, rubs, systolic murmur - GI/Abdominal GI/Abdominal exam: Present: normal bowel sounds, soft, no peritoneal signs. Absent: distended, tenderness - Extremities Exam Extremities exam: Present: warm, radial pulses palpable and symetrical. Absent : calf tenderness, cyanotic, pedal edema - Neurological Exam Neurological exam: Present: alert, oriented X3, no focal deficits. Absent: pronater drift, facial droop, speech deficit - Psychiatric Psychiatric exam: Present: normal affect, normal mood <Brian Hurtado - Last Filed: 01/06/17 17:56> Date of Encounter: 01/06/17 Date of admission: 12/28/16 23:28 Primary care physician: Ivis Giraldo CNP Consults: 12/28/16 23:32 Consult to Procurement Intern [CONS] Routine Reason for SW Consult: pt from [facility] 12/29/16 10:21 Consult to Nutrition [CONS] Routine Comment: *From [facility] and receives Ensure/ Magic Cup Consulting Provider: NUTRITION Reason for Dietary Consult: PO Supplementation 12/30/16 15:19 Consult to Occupational Therapy [CONS] Routine Comment: Evaluate, develop and implement POC Consult to Physical Therapy [CONS] Routine Comment: Evaluate, develop and implement POC Hospital course: Ms. Bills is a 89 year old female - Time Spent with Patient Total time spent providing and/or coordinating discharge services: - Constitutional Vitals: Temp Pulse Resp BP Pulse Ox 98.7 F 61 20 160/72 93 01/06/17 06:46 01/06/17 06:46 01/06/17 10:13 01/06/17 06:46 01/06/17 10:13 - Attending Attestation I examined this patient and my medical decision-making was reviewed with the COAT CUTTER/PA/Advanced Practice Nurse/Resident Physician. I agree with the documented findings, disposition and treatment plan as described except to the extent set forth below. Agree with Dr. Arellano. Hypernatremia resolved. Potassium WNL. Stable for D/C D/W patient and her family member.
--- NOTE | 2017-01-06 09:21 | Physician Discharge Referral ---
ExtendedCare Referral Info Transfer To: ECF Provider in Charge after Transfer: PCP Institutional Level of Care: Skilled - Diagnosis (1) Acute respiratory failure Priority: Primary Status: Acute (2) Aspiration into airway Priority: Primary Status: Suspected (3) Rotavirus enteritis Priority: Primary Status: Acute (4) Dementia Priority: Secondary Status: Chronic (5) Hypothyroid Priority: Secondary Status: Chronic (6) Hypernatremia Priority: Secondary Status: Acute (7) Hypokalemia Priority: Secondary Status: Acute - Transfer Medications Prescriptions: Amlodipine [Norvasc] 5 mg PO DAILY #10 tablet Home Medications: Docusate Sodium [Move It Along] 100 mg PO DAILY 09/05/16 [History] Ibuprofen [Motrin] 200 mg PO Q12H PRN 09/05/16 [History] Levothyroxine [Synthroid] 100 mcg PO DAILY 09/05/16 [History] Losartan [Cozaar] 25 mg PO DAILY 09/05/16 [History] Memantine HCl 10 mg PO BID 09/05/16 [History] Metoprolol [Lopressor] 50 mg PO BID 09/05/16 [History] Omeprazole [PriLOSEC] 20 mg PO DAILY 09/05/16 [History] Sennosides [Senna] 8.6 mg PO DAILY 09/05/16 [History] Acetaminophen [Tylenol] 500 mg PO Q6HR PRN 09/06/16 [History] Calcium Carbonate [Tums] 1,000 mg PO Q4HR PRN 12/28/16 [History] Citalopram [CeleXA] 20 mg PO DAILY 12/28/16 [History] Divalproex Sodium [Depakote Sprinkle] 125 mg PO BID 12/28/16 [History] Gabapentin [Neurontin] 100 mg PO HS 12/28/16 [History] Lactose-Reduced Food [Ensure Plus] 1 bottle PO DAILY 12/28/16 [History] Magic Cup 1 each PO DAILY 12/28/16 [History] Nutritional Supplement [Ensure] 113 gm PO QPM 12/28/16 [History] Amlodipine [Norvasc] 5 mg PO DAILY #10 tablet 01/06/17 [Rx] Allergies/Adverse Reactions: Allergies codeine Allergy (Verified 12/28/16 16:06) See Comments UNKNOWN REACTION- LISTED ON PATIENT'S ECW LAST APPT Donepezil [From Aricept] Allergy (Verified 12/28/16 16:06) See Comments UNKNOWN REACTION- LISTED ON PATIENT'S ECW LAST APPT - Respiratory Orders Smoking Cessation: Smoking cessation has been advised. For more information, call the [place] Tobacco Quit Line at 3-943-CKSR-NOW. - Advance Directives Living Will: No Power of Telephone Betting Clerk: No Code Status: DNR-Comfort Care - Mobility Orders Ambulate - Rehabiliation Orders Rehab Orders: Evaluation for Physical Therapy, Evaluation for Occupational Therapy - Diet Orders Regular CERTIFICATION: I certify that the transfer of the above named patient to an Extended Care Facility is necessary for the continuing treatment of the diagnosis listed. The above information is true and accurate reflection of patient's current condition. Confidential - Redisclosure prohibited without a patient's written consent.
== END 2017-01-06 11:34 | DRG 177 ==
LOC: EMEROO 15:25 → 2ANU 15:25 → SUATTDRO 23:28
PROVIDERS: ADMIT Internal Medicine; ATTEND Internal Medicine